=== PATIENT | female | born 1965 | race Caucasian/White ===

== ENCOUNTER 2019-12-27 09:31 | Outpatient (REF) | payer OTHER, SELFPAY | END 2019-12-27 09:32 | disposition home or self-care (01) | LOC: HO.LAB 09:31 | PROVIDERS: PCP Internal Medicine; Visit Provider Internal Medicine | DX: Z20.828 Contact with and (suspected) exposure to other viral communicable diseases (principal) | CPT/HCPCS: 87635 ==

== ENCOUNTER 2024-10-11 06:24 | Day surgery (SDC) | payer OTHER, SELFPAY ==
--- OUTSIDE RECORDS SUMMARY | 2024-08-13 13:33 | XMS_ITS | Clinical Summary ---
Author Organization [address] Address [address] [place] [phone] Phone Care Team Providers Care Legal Financial Specialist Name Role Phone Vicky Warren MD Primary Care Provider [phone] Allergies No known active allergies Medications freestyle 28 gauge lancets 1 Units by Other route 2 times daily. 5 Active furosemide (LASIX) 20 mg tablet Take 1 tablet (20 mg total) by mouth daily. 5 Active aspirin 81 mg EC tablet Take 1 tablet (81 mg total) by mouth 1 (one) time each day. 2 Active glucose blood test strip 1 each 2 times daily. 5 Active blood-glucose meter kit daily. 5 Active hydroCHLOROthia zide (HYDRODIURIL) 25 mg tablet Take 1 tablet (25 mg total) by mouth 1 (one) time each day. 6 Active metFORMIN XR (GLUCOPHAGE-XR) 500 mg 24 hr tablet Take 2 tablets (1,000 mg total) by mouth 2 (two) times a day. Do not crush, chew, or split. Active buPROPion SR (WELLBUTRIN SR) 150 mg 12 hr tablet Take 1 tablet (150 mg total) by mouth 1 (one) time each day in the evening. Do not crush, chew, or split. Active losartan (COZAAR) 100 mg tablet Take 1 tablet (100 mg total) by mouth 1 (one) time each day. Active atorvastatin (LIPITOR) 20 mg tablet Take 1 tablet (20 mg total) by mouth at bedtime. Active rOPINIRole (REQUIP) 0.25 mg tablet Take 1 tablet (0.25 mg total) by mouth at bedtime. Active fluticasone HFA (FLOVENT HFA) 110 mcg/actuation inhaler Inhale 1 puff by mouth 2 (two) times a day. Rinse mouth with water after use to reduce aftertaste and incidence of candidiasis. Do not swallow. Active dulaglutide (TRULICITY) 3 mg/0.5 mL pen injector injection Inject 0.5 mL (3 mg total) under the skin every 7 (seven) days. Increase in dose 2 mL 1 4 Active empagliflozin (Jardiance) 25 mg tablet Take 1 tablet (25 mg total) by mouth 1 (one) time each day. 90 tablet 1 4 Active polyethylene glycol (Golytely) 236-22.74-6.74 -5.86 gram solution Take 4L by mouth once for one dose. May substitue any PEG. Starting at 6PM the night before your procedure drink 1 8oz glasses at your own pace until you complete half of the gallon. Finish 2nd half of the gallon 5 hours before your procedure. 4000 mL 5 Active bisacodyL (DULCOLAX) 5 mg EC tablet Take 2 tablets by mouth right before beginning bowel prep. See instructions provided by the office 2 tablet 5 Active Additional Information Patient not taking.Reported on 06/17/2024 Ventolin HFA 90 mcg/actuation inhaler INHALE 1 PUFF INTO THE LUNGS EVERY 6 HOURS NEEDED FOR COUGH, WHEEZING OR SHORTNESS OF BREATH. 54 each 1 5 Active resmetirom (Rezdiffra) 80 mg tabletIndicatio ns:POP (nonalcoholic steatohepatitis ) Take 80 mg by mouth 1 (one) time each day. 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 Acute hepatitis panel was negative. US liver consistent with steatohepatitis January 2021 Trichomonas infection 04/08/2018 Hyperlipidemia 07/30/2016 Abnormal Pap smear of cervix 02/27/2016 Overview (05/06/2023): 2013 ASCUS / colposcopy Anxiety 11/08/2015 Diabetes mellitus type 2, un complicated ([facility]/HCC V24, [facility]/HCC V28) 07/15/2014 ESR raised 05/02/2014 Overview (05/06/2023): Liver ultrasound 05/17/2014: echogenic liver Obesity 05/02/2014 TREE on CPAP 05/02/2014 Overview (05/06/2023): [facility] home sleep test 07/17/2021. Weight 206; BMI 40. AHI 11. Obstructive apneas 19, central apneas; Hypopneas 26. Oxygen saturation 94% and oxygen elizabeth 80%. Obstructive sleep apnea-mild with mostly hypopneas and obstructive apneas without nocturnal hypoxemia based on 2021 home sleep study. Last Assessment & Plan: Ramila started using the machine last year. The CPAP is working excellent and her ESS score is less than 5. She feels with more energy Use of the machine is still a little bit short-term more than 4 hours only 65% of the time I advised her that for meeting DME requirements she needs more than 70% of the time She is receiving the supplies from [employer] We will see her back in 1 year with compliance report. CTS (carpal tunnel syndrome) 11/13/2013 Overview (05/06/2023): Surgery right 11/2013 / left mild Right CTS surgery [facility] 11/2013 Pterygium of left eye 10/15/2013 Syncope 10/15/2013 Overview (05/06/2023): Result type: Neurology Note Office Result date: 04 October 2013 9:21 Result status: Auth (Verified) Result title: Neurology follow up Performed by: Esther Mason NP on 04 October 2013 9:41 Verified by: Esther Mason NP on 04 October 2013 9:41 Encounter info: [id number], [facility], Triage, 12/29/2013 - Neurology follow up Patient: RAMILA PETERSON Age: 48 years Sex: Female : 1965 Associated Diagnoses: None Author: Esther Mason NP Visit Information Chief Complaint: syncope. Visit Information Accompanied by: email developer. Source of History: patient, medical record. Visit Type: neurological follow-up. Interval History Brigitte is a 48yo female here for f/u of syncope vs seizures after ER visit 09/18/13. She was last evaluated by Dr coyne on 05/06/12. She is accompanied by a alum plant supervisor. She was seen in [facility] ER on 09/18 after she was found by her children unresponsive on the couch. Per her report she was shaking and foaming from the mouth, she has no memory of the event, the last she remembers was sitting on the couch watching tv. She describes a period of a few hours after waking of being confused and fatigued. CT scan of head and EKG normal, she was d/c home with question of syncope. She had a 5day VEEG in 2012 which was normal at which time Dr Coyne attributed her episodes as possibly AURELIO and was refered to behavioral health. She did not show for her appointment stating its because she speaks korean and they speak italian. She has not been on AEDs in the past or present. She has seen cardiology for syncope and collapse workup however she did not follow up for recommended tilt table testing. She reports that she will see lights flash in her vision and feels like she will pass out, but it usually passes. She thinks this may be seizures because of her most recent episode of shaking and foaming at the mouth. She denies any postural relation. She denies any illnesses, additional stress, or extreme fatigue at the time of ER visit. Reports poor sleep as she wakes frequently, cannot stop moving her legs, snores, wakes up gasping for air. No sleep study in past. Past Medical History Problem list All Problems ASCUS (atypical squamous cells of undetermined significance) on Pap smear / ICD-9-CM 795.01 / Confirmed 05/25/12 colpo pap neg; cx bx atrophy, no dysplasia; p16 neg. 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 / Confirmed Venous insufficiency / ICD-9-CM 459.81 / Confirmed Allergies Allergic Reactions (Selected) NKA Current medications (Selected) Prescriptions Prescribed Compression Stockings: See Instructions, # 1 pair, Maintenance, left lower extremity surgical, knee length 20-30 mm Hg, 07/07/12 13:24:11 Compression Stockings: See Instructions, # 2 pair, Maintenance, surgical, thigh high length 20-30 mm Hg, 09/22/12 16:03:28 Percocet-5/325 325 mg-5 mg oral tablet: See Instructions, PRN for pain, 1 tablet By Mouth Every 3 to 4 hours, # 30 tablet, 0 Refills, Maintenance, Tablet Documented Medications Documented Aspir 81: = 81 mg, By Mouth, Daily, 0 Refills, Maintenance Flovent HFA 110 mcg/inh inhalation aerosol: 2 puffs, Inhalation, 2 times a day, 0 Refills, Maintenance Lorazepam: = 1 mg, By Mouth, 3 times a day, PRN as needed for anxiety, 0 Refills, Maintenance ProAir HFA 90 mcg/inh inhalation aerosol with adapter: 2 puffs, Inhalation, 4 times a day, 0 Refills, Maintenance ferrous sulfate 325 mg oral enteric coated tablet: 1 tablet = 325 mg, By Mouth, Daily, 0 Refills, Maintenance hydrochlorothiazide-losartan 25 mg-100 mg oral tablet: 1 tablet, By Mouth, Daily, 0 Refills, Maintenance lisinopril 5 mg oral tablet: 1 tablet = 5 mg, By Mouth, Daily, 0 Refills, Maintenance Social History Social History No qualifying data available . Tobacco Use: Nonsmoker. Alcohol Use: Does not drink. Drug Use: Does not use drugs. Employment: Unemployed. Exercise None. Family History no fh of seizure disorders Review of Systems General: no weight loss, no weight gain. Neurological: daytime sleepiness, fatigue, no hearing loss, no headache, no imbalance, no incoordination, no language problem, no memory problem, no numbness, no paresthesias, snoring, no tingling, no tinnitus, no tremor, no vertigo, no visual changes, no weakness of one part of the body. Psychiatric: no anxiety, no depression, insomnia. Significant Constitutional, Eye, Skin, Head/Neck, ENMT, Respiratory, Cardio, Gastrointestinal, Breast, Gynecologic, Genitourinary, Endocrine, Muscoloskeletal, Immunologic, Hematologic, Lymphatic, Neurologic, Psych reviewed and negative except as noted above. Physical Examination Vital Signs Vitals Vital Signs: Vitals : VITAL SIGNS SECTION 10/01/2013 13:38 Temperature 98.0 DegF Pulse Rate 82 bpm Respiratory Rate 12 br/min L Systolic Blood Pressure 132 mm Hg Diastolic Blood Pressure 78 mm Hg Blood pressure sites Arm, right Mean Arterial Pressure 96 mm Hg . General: Well-appearing patient in no pain or distress. Obese. HEENT: Normocephalic and atraumatic. No scleral discoloration. crowded oropharynx Neck: No scarring. Normal carotid pulses with absent bruits. Heart: Regular rate and rhythm. No murmur. Lungs: Clear to auscultation bilaterally. Abdomen: No mass or tenderness to palpation. Skin: No hypo- or hyperpigmented regions. Limbs: No deformity or amputation. No significant joint swelling or tenderness. Neurologic Examination: Mental Status: Alert, oriented, fluent language. Normal comprehension and gross fund of knowledge. Cranial Nerves: Visual maxwell are full to confrontational testing. PERRLA. No afferent pupillary defect. Optic discs normal. EOMI. Face is symmetric with no sensory deficits. Hearing is intact to finger rub. Palate and uvula are midline. Sternocleidomastoid and trapezius demonstrate full strength. Tongue is midline with no atrophy or fasciculation. Motor: Normal muscle bulk and tone. Normal range of motion. No tremor or other involuntary movements. Strength is rated 5/5 in bilateral upper and lower extremities. Sensory: Normal sensation to light touch, sharp, vibration, and proprioception. Reflexes: 2 + and symmetric, downgoing toes bilaterally Cood: No ataxia on finger-nose or heel-mills testing. Rapid movements are normal in upper and lower extremities. Gait: Normal gait. The patient is able to heel, toe and tandem walk without difficulty. Results Review Per [facility] ED report- CT scan normal, EKG normal Impression and Plan Ramila is a 48yo female with syncope with collpase vs epileptic seizure vs psychogenic non epileptic seizures. Previous 5day VEEG normal. I advised her that it is important to follow up with recommended testing and treatments to help distinguish the etiology of her episodes (ie consulting behavioral health and tilt table testing through cardiology). Because of this new episode will obtain a 24hour AEEG but I am doubtful that seizures are the cause here. I advised her to call for the tilt table testing as she may have orthostatic hypotension causing her collapses. I explained that sometimes fainting can mimic seizure-like activity. She should also see behavioral health as recommended by Dr Coyne as it is a possibility these are psychogenic. She likely has TREE and will order a sleep study. We discussed getting to safe place when she has the aura of lights flashing. She will follow up with me in 3-4 months. Spent 45 minutes with Ramila of which 35 was spent counseling and coordinating and reviewing plan of care as discussed above. Esther Mason NP Neurology Division Attending: Medardo Coyne MD Comprehensive Plan Report sent to all consultants: Jena Fletcher. Mild vitamin D deficiency 01/21/2013 Encounters Date Type Department Care Team Description 08/13/2024 9:26 AM EDT Hospital Encounter Radiology Department - [address] [phone] Encounter for screening mammogram for breast cancer 07/15/2024 Telephone Gastroenterology - [facility] [address] [facility] [address] [place] [phone] Mary Vásquez PA prior auth Rezdiffra 80 mg tablet 07/01/2024 8:14 AM EDT - 07/01/2024 11:59 PM EDT Hospital Encounter [facility] Ultrasound [address] [place] [phone] POP (nonalcoholic steatohepatitis); Polyp of colon, unspecified part of colon, unspecified type Discharge Disposition: Home or Self Care 06/17/2024 10:30 AM EDT Office Visit Gastroenterology [facility] [address] [phone] Mary Vásquez PA POP (nonalcoholic steatohepatitis) (Primary Dx); Polyp of colon, unspecified part of colon, unspecified type 06/06/2024 1:34 PM EDT - 06/06/2024 2:15 PM EDT Emergency [facility] Emergency [address] [place] [address] Parotid sialadenitis (Primary Dx) Discharge Disposition: Home or Self Care 06/04/2024 8:45 AM EDT Office Visit Obstetrics and Gynecology [address] [phone] Susana Longoria, CHITRA Encounter for gynecological examination without abnormal finding (Primary Dx); Vaginal itching 06/03/2024 12:48 PM EDT Anesthesia Event [facility] Endoscopy [address] [place] [phone] Serge Bose MD 06/03/2024 11:01 AM EDT - 06/03/2024 11:59 PM EDT Hospital Encounter [facility] Endoscopy [address] [place] [phone] Katina Yancey MD Steele, Matthew G, CRNA Colon cancer screening Discharge Disposition: Home or Self Care 05/27/2024 Telephone [facility] - [address] [phone] Vicky Warren MD faxed order (Michael Vera) from Last 3 Months Immunizations Name Administration Dates Next Due Influenza Quadravalent, MDCK , 0.5ml, preservative free (Flucelvax) 6mo and older 01/22/2019,01/22/2018 Influenza Quadravalent, MDCK , 0.5ml, with preservative (Flucelvax) 6mo and older 11/25/2016 Influenza trivalent, with pr eservative (Fluzone; Afluria) 6mo and older 02/15/2016,01/02/2012 Pfizer SARS-CoV-2 COVID-19, mRNA, LNP-S, preservative free 08/10/2020,07/19/2020 Pneumococcal polysaccharide 23 valent (Pneumovax 23) 2yo and older 06/06/2015 Tdap Tetanus diptheria acell ular pertussis (Boostrix; Adacel) 7yo and older 06/06/2015,01/17/2012 Surgical History Surgery Date Site/Laterality Comments CARPAL TUNNEL RELEASE PROCEDURE: HISTORICAL CARPAL TUNNEL REL TUBAL LIGATION PROCEDURE: HISTORICAL TUBAL LIGATION OTHER SURGICAL HISTORY PROCEDURE: ---- OTHER ----; COMMENT: right ooforectomy COLONOSCOPY 06/29/2015 PROCEDURE: HISTORICAL COLONOSCOPY; COMMENT: Colon polyp, diverticulosis, hemorrhoids COLPOSCOPY 05/25/2012 PROCEDURE: OH COLPOSCOPY ENTIRE VAGINA W/CERVIX IF PRESENT SALPINGOOPHORECTOMY Right PROCEDURE: OH LAPAROSCOPY W/RMVL ADNEXAL STRUCTURES Medical History Medical History Date Comments TREE on CPAP DX:TREE on CPAP Asthma DX:Asthma Hypertension DX:Hypertension Varicose veins of both lower extremities DX:Varicose veins of both lo wer extremities Depression DX:Depression Anxiety 11/08/2015 DX:Anxiety Controlled type 2 diabetes m ellitus with neurological manifestations (CMS/HCC V24, CMS/HCC V28) DX:Controlled type 2 diabet es mellitus with neurological manifestations (HCC) Elevated LFTs 02/26/2016 DX:Elevated LFTs Carpal tunnel syndrome 02/26/2016 DX:Carpal tunnel syndrome; COMMENT: Right 11/2013 Syncope 02/26/2016 DX:Syncope Pterygium of left eye 02/26/2016 DX:Pterygi um of left eye Abnormal Pap smear of cervix 02/27/2016 DX: Abnormal Pap smear of cervix; COMMENT: 2012 ASCUS / colposcopy Hyperlipidemia 07/30/2016 DX:Hyperlipidemi a Morbid obesity due to excess calories ([facility] V24, [facility] V28) 11/25/2016 DX:Morbid obesity due to ex cess calories (HCC) Eating disorder, unspecified 08/17/2021 DX: Eating disorder, unspecified; COMMENT: Florina Lopez PhD POP (nonalcoholic steatohepatitis) 01/02/2021 DX:POP (nonalcoholic steatohepatitis); COMMENT: With elevated alk phos and GGT. Acute hepatitis panel was negative. US liver consistent with steatohepatitis January 2021 Postmenopausal bleeding 06/19/2021 DX:Postm enopausal bleeding Trichomonas infection 04/08/2018 DX:Trichom onas infection Uncontrolled type 2 diabetes mellitus with hyperglycemia ([facility] V24, [facility] V28) 08/02/2021 DX:Uncontrolled type 2 diabe jasmyne mellitus with hyperglycemia ([facility]) Family History Medical History Relation Name Comments Prostate cancer Father Diabetes Mother glaucoma Breast cancer Neg Hx Colon cancer Neg Hx Ovarian cancer Neg Hx Pancreatic cancer Neg Hx Uterine cancer Neg Hx Relation Name Status Comments Father Mother Alive Social History Tobacco Use Types Packs/Day Years Used Date Smoking Tobacco: Never Smokeless Tobacco: Never Tobacco Cessation:Counseling Given: Not Answered Alcohol Use Standard Drinks/Week Comments No 0 (1 standard drink = 0.6 oz pur e alcohol) Interpersonal Safety Answer Date Record ed Physical Abuse 06/03/2024 Verbal Abuse 06/03/2024 Comments No Sex and Gender Information Value Date Recorded Sex Assigned at Female 06/03/2024 10:51 AM EDT Legal Sex Female 1:31 AM EST Gender Identity Female 06/03/2024 10:51 AM EDT Sexual Orientation Straight 06/03/2024 10 :51 AM EDT Obstetrics History Para Term AB IAB SAB Ectopic Multiple Livin g Live Births 5 4 4 1 1 4 4 Date Outcome GA Total Labor Labor//3rd Weight Sex Type Anes PTL Aminata A1 A5 Name Clin Term Living Term Living Term Living Term Living SAB Last Filed Vital Signs Vital Sign Reading Time Taken Comments Blood Pressure 138/78 06/17/2024 10:29 AM EDT Pulse 70 06/06/2024 1:32 PM EDT Temperature 36.8 ??C (98.2 ??F) 06/06/2024 1:32 PM ED T Respiratory Rate 16 06/06/2024 1:32 PM EDT Oxygen Saturation 98% 06/06/2024 1:32 PM EDT Inhaled Oxygen Concentration - - Weight 92.1 kg (203 lb) 06/17/2024 10:29 AM EDT Height 152.4 cm (5') 06/17/2024 10:29 AM EDT Body Mass Index 39.65 06/17/2024 10:29 AM EDT Plan of Treatment Upcoming Encounters Date Type Department Care Team (Late st Contact Info) Description 08/25/2024 10:30 AM EDT Office Visit Adult Medicine [address] [phone] Nely Bates PA [address] [place] [phone] 08/31/2024 9:45 AM EDT Office Visit Pulmonolgy - [place] [address] [phone] Debra Pendleton MD [address] [address] 09/22/2024 9:50 AM EDT Office Visit Gastroenterology - [place] [address] [phone] Mary Vásquez PA [address] [phone] Health Maintenance Due Date Last Done Comments Diabetes: Annual Foot Exam 1975 Diabetes: Annual Retina Eye Exam 1975 Hepatitis A Vaccines (1 of 2 - Risk 2-dose series) 01/08/1984 Hepatitis B Vaccines (1 of 3 - 19+ 3-dose series) 01/08/1984 Cervical Cancer Screening: HPV 1986 Zoster Vaccines (1 of 2) 2015 Pneumococcal Vaccine: 50+ Years (2 of 2 - PCV) 06/05/2016 06/06/2015, 04/21/2012 Pneumococcal Vaccine: Pediatrics (0 to 5 Years) and At-Risk Patients (6 to 64 Years) (2 of 2 - PCV) 06/05/2016 06/06/2015, 04/21/2012 Depression Screening 02/16/2022 HIV Screening 02/16/2022 Hepatitis C Screening 02/16/2022 Social Influencers of Health Screening 02/16/2022 Diabetes: Annual Urine Albumin-Creatinine Ratio (uACR) 02/23/2022 COVID-19 Vaccine ( season) 2023 08/10/2020, 07/19/2020 Diabetes: Blood Sugar Control Test (HGBA1C) 07/27/2024 01/28/2024, 11/03/2023 DTaP,Tdap,and Td Vaccines (3 - Td or Tdap) 06/05/2025 06/06/2015, 01/17/2012 Breast Cancer Screening 07/31/2025 08/01/19, 08/01/2023, 07/18/2022, Additional history exists Diabetes: Annual GFR (Glomerular Filtration Rate) 08/11/2025 08/11/2024, 01/28/2024, 11/03/2023 Hypertension/CHF/CAD Annual BMP Blood Test 08/11/2025 08/11/2024, 01/28/2024, 11/03/2023 Cholesterol Screening (Lipid Panel) 01/27/2029 01/28/2024 Colorectal Cancer Screening: Colonoscopy 06/03/2034 06/03/2024 RSV Immunization Adult Patients (1 - 1-dose 75+ series) 01/08/2040 Influenza Vaccine Completed 01/06/2024, , 01/22/2018, Additional history exists HIB Vaccines Aged Out No longer eligi ble based on patient's age to complete this topic HPV Vaccines Aged Out No longer eligi ble based on patient's age to complete this topic IPV Vaccines Aged Out No longer eligi ble based on patient's age to complete this topic MMR Vaccines Aged Out No longer eligi ble based on patient's age to complete this topic Meningococcal ACWY Vaccine Aged Out N o longer eligible based on patient's age to complete this topic Meningococcal B Vaccine Aged Out No l onger eligible based on patient's age to complete this topic RSV Immunization Patients Under 20 months Aged Out No longer eligible based on patient's age to complete this topic Varicella Vaccines Aged Out No longer eligible based on patient's age to complete this topic Procedures Procedure Name Priority Date/Time Associated Diagnosis Comments CBC WITH AUTO DIFFERENTIAL Routine 08/11/2024 8:52 AM EDT POP (nonalcoholic steatohepatitis) CBC AND DIFFERENTIAL Routine 08/11/2024 8:52 AM EDT POP (nonalcoholic steatohepatitis) PROTHROMBIN TIME WITH INR Routine 08/11/2024 8:52 AM EDT POP (nonalcoholic steatohepatitis) COMPREHENSIVE METABOLIC PANEL Routine 08/11/2024 8:52 AM EDT POP (nonalcoholic steatohepatitis) US ELASTOGRAPHY PARENCHYMA Routine 07/01/2024 8:33 AM EDT POP (nonalcoholic steatohepatitis) Polyp of colon, unspecified part of colon, unspecified type TRICHOMONAS VAGINALIS ANTIGEN Routine 06/04/2024 9:03 AM EDT Vaginal itching WET PREP, GENITAL Routine 06/04/2024 9:0 3 AM EDT Vaginal itching COLONOSCOPY Routine 06/03/2024 12:59 PM EDT Colon cancer screening TISSUE EXAM Routine 06/03/2024 12:55 PM EDT Colon cancer screening HEMOGLOBIN A1C Routine 01/28/2024 9:21 AM EST 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 (CMS/HCC V24, CMS/HCC V28) Hypertension, unspecified type Hyperlipidemia, unspecified hyperlipidemia type LIPID PANEL WITH REFLEX TO DIRECT LDL Routine 01/28/2024 9:21 AM EST 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 (CMS/HCC V24, CMS/HCC V28) Hypertension, unspecified type Hyperlipidemia, unspecified hyperlipidemia type SCREENING MAMMOGRAPHY BI 2-VIEW BREAST INC CAD Routine 08/01/2023 10:06 AM EDT Encounter for screening mammogram for malignant neoplasm of breast from Last 3 Months or Most Recently Relevant to Health Maintenance Results * (ABNORMAL) CBC auto differential (08/11/2024 8:52 AM EDT) WBC 8.2 4.8 - 10.8 K/mcL LAB HEMETOLOGY METHOD 08/11/2024 10:[address] [facility] RBC 4.70 3.80 - 4.80 M/mcL LAB HEMETOLOGY METHOD 08/11/2024 10:[address] [facility] Hemoglobin 12.6 11.5 - 16.0 g/dL LAB HEMETOLOGY METHOD 08/11/2024 10:[address] [facility] Hematocrit 40.9 35.0 - 47.0 % LAB HEMETOLOGY METHOD 08/11/2024 10:[address] [facility] MCV 88.0 79.0 - 98.0 FL LAB HEMETOLOGY METHOD 08/11/2024 10:[address] [facility] MCH 27.1 27.0 - 32.0 pcg LAB HEMETOLOGY METHOD 08/11/2024 10:[address] [facility] MCHC 30.8(L) 32.0 - 37.0 g/dL LAB HEMETOLOGY METHOD 08/11/2024 10:[address] [facility] RDW 13.2 11.0 - 15.0 % LAB HEMETOLOGY METHOD 08/11/2024 10:[address] [facility] Platelets 292 130 - 400 K/mcL LAB HEMETOLOGY METHOD 08/11/2024 10:[address] [facility] MPV 11.4(H) 7.0 - 11.0 FL LAB HEMETOLOGY METHOD 08/11/2024 10:[address] [facility] NRBC 0.0 <1.0 % LAB HEMETOLOGY METHOD 08/11/2024 10:[address] [facility] NRBC Absolute 0.00 <0.10 K/mcL LAB HEMETOLOGY METHOD 08/11/2024 10:[address] [facility] Neutrophils Relative 56.1 % LAB HEMETOLOGY METHOD 08/11/2024 10:[address] [facility] Lymphocytes Relative 30.4 % LAB HEMETOLOGY METHOD 08/11/2024 10:[address] [facility] Monocytes Relative 8.5 % LAB HEMETOLOGY METHOD 08/11/2024 10:[address] [facility] Eosinophils Relative 3.7 % LAB HEMETOLOGY METHOD 08/11/2024 10:[address] [facility] Basophils Relative 1.1 % LAB HEMETOLOGY METHOD 08/11/2024 10:[address] [facility] Immature Granulocytes Relative 0.2 % LAB HEMETOLOGY METHOD 08/11/2024 10:[address] [facility] Neutrophils Absolute 4.59 1.50 - 7.00 K/mcL LAB HEMETOLOGY METHOD 08/11/2024 10:[address] [facility] Lymphocytes Absolute 2.49 1.00 - 5.00 K/mcL LAB HEMETOLOGY METHOD 08/11/2024 10:[address] [facility] Monocytes Absolute 0.70 0.20 - 1.00 K/mcL LAB HEMETOLOGY METHOD 08/11/2024 10:[address] [facility] Eosinophils Absolute 0.30 0.00 - 0.50 K/mcL LAB HEMETOLOGY METHOD 08/11/2024 10:[address] [facility] Basophils Absolute 0.09 0.00 - 0.20 K/[facility] LAB HEMETOLOGY METHOD 08/11/2024 10:14 AM EDT [facility] Immature Granulocytes Absolute 0.02 0.00 - 0.03 K/[facility] LAB HEMETOLOGY METHOD 08/11/2024 10:14 AM EDT [facility] Blood Venous blood specimen / Unknown Venipuncture / Unknown 08/11/2024 8:52 AM EDT 08/11/2024 8:52 AM EDT Mary JACOBS LAB BLOOD ORDERABLES Final Re sult Performing Organization Address [facility]/ZIP Co de Phone Number [facility] [address] [place] [address], [place] [phone] * Prothrombin time with INR (08/11/2024 8:52 AM EDT) Protime 11.8 10.6 - 13.9 sec LAB COAGULATION METHOD 08/11/2024 10:11 AM EDT [facility] INR 0.9 LAB COAGULATION METHOD 08/11/2024 10:11 AM EDT [facility] Blood Venous blood specimen / Unknown Venipuncture / Unknown 08/11/2024 8:52 AM EDT 08/11/2024 8:52 AM EDT Mary JACOBS LAB BLOOD ORDERABLES Final Re sult Performing Organization Address City/[facility]/ZIP Co de Phone Number [facility] [address] [place] [address], [place] [phone] * (ABNORMAL) Comprehensive metabolic panel (08/11/2024 8:52 AM EDT) Sodium 139 133 - 145 mmol/L LAB CHEMISTRY METHOD 08/11/2024 2:47 PM EDT [facility] Potassium 4.2 3.5 - 5.5 mmol/L LAB CHEMISTRY METHOD 08/11/2024 2:[address] [facility] Chloride 105 96 - 110 mmol/L LAB CHEMISTRY METHOD 08/11/2024 2:[address] [facility] CO2 28 21 - 32 mmol/L LAB CHEMISTRY METHOD 08/11/2024 2:[address] [facility] Anion Gap 6 3 - 11 LAB CHEMISTRY METHOD 08/11/2024 2:[address] [facility] Glucose 253(H) 70 - 100 mg/dL LAB CHEMISTRY METHOD 08/11/2024 2:[address] [facility] BUN 12 5 - 25 mg/dL LAB CHEMISTRY METHOD 08/11/2024 2:[address] [facility] Creatinine 0.64 0.50 - 1.10 mg/dL LAB CHEMISTRY METHOD 08/11/2024 2:[address] [facility] eGFR 102 >=60 mL/min/1. 73m2 LAB CHEMISTRY METHOD 08/11/2024 2:[address] [facility] Comment:Calculation based on the Chronic Kidney Disease Epidemiology Collaboration (CKD-EPI) equation refit without adjustment for race. BUN/Creatinine Ratio 18.8 LAB CHEMISTRY METHOD 08/11/2024 2:[address] [facility] Calcium 9.1 8.5 - 10.5 mg/dL LAB CHEMISTRY METHOD 08/11/2024 2:[address] [facility] AST (SGOT) 29 10 - 42 unit/L LAB CHEMISTRY METHOD 08/11/2024 2:[address] [facility] ALT (SGPT) 56 10 - 60 unit/L LAB CHEMISTRY METHOD 08/11/2024 2:[address] [facility] Alkaline Phosphatase 144(H) 42 - 121 unit/L LAB CHEMISTRY METHOD 08/11/2024 2:[address] [facility] Total Protein 7.4 6.0 - 8.0 g/dL LAB CHEMISTRY METHOD 08/11/2024 2:47 PM EDT [facility] Albumin 3.3 3.2 - 5.0 g/dL LAB CHEMISTRY METHOD 08/11/2024 2:47 PM EDT [facility] Total Bilirubin 0.4 0.0 - 1.4 mg/dL LAB CHEMISTRY METHOD 08/11/2024 2:47 PM EDT [facility] Blood Venous blood specimen / Unknown Venipuncture / Unknown 08/11/2024 8:52 AM EDT 08/11/2024 8:52 AM EDT us Mary JACOBS LAB BLOOD ORDERABLES Final Re sult [facility] [address] [place] [address], * [place] Elastography Parenchyma (07/01/2024 8:33 AM EDT) Anatomical Region Laterality Modality Body Ultrasound 07/01/2024 11:0 3 AM EDT Impressions 07/01/2024 11:04 AM EDT Vmean of 1.9 m/s. Hepatic elastography measurements: Vmean less than 1.3 m/s: High probability of being normal. Vmean 1.3-1.7 m/s: In the absence of other known clinical signs, rules out compensated advanced chronic liver disease. ??If there are clinical signs, may need further testing for confirmation. Vmean 1.7-2.1 m/s: suggestive of compensated advanced chronic liver disease but further testing needed for confirmation. Vmean 2.1-2.4 m/s: rules in compensated advanced chronic liver disease. Vmean greater than 2.4 m/s: suggestive of clinically significant portal hypertension. -------- FINAL REPORT -------- Dictated By: Devyn Serra Dictated Date: 07/01/2024 11:03 ET Assigned Physician: Devyn Serra Reviewed and Electronically Signed By: Devyn Serra Signed Date: 07/01/2024 11:04 ET Workstation ID: [id number] Transcribed By: Self Edit Transcribed Date: 07/01/2024 11:03 ET Narrative 07/01/2024 11:04 AM EDT PROCEDURE: Liver elastography study. TECHNIQUE: Limited images of the liver with multiple elastography measurements. COMPARISON: Ultrasound 01/11/2021. FINDINGS: Vmean measurement of 1.9 m/s. Procedure Note Devyn Serra MD - 07/01/2024 PROCEDURE: Liver elastography study. TECHNIQUE: Limited images of the liver with multiple elastographymeasurements. COMPARISON: Ultrasound 01/11/2021. FINDINGS: Vmean measurement of 1.9 m/s. IMPRESSION: Vmean of 1.9 m/s. Hepatic elastography measurements: Vmean less than 1.3 m/s: High probability of being normal. Vmean 1.3-1.7 m/s: In the absence of other known clinical signs, rules outcompensated advanced chronic liver disease. If there are clinical signs,may need further testing for confirmation. Vmean 1.7-2.1 m/s: suggestive of compensated advanced chronic liverdisease but further testing needed for confirmation. Vmean 2.1-2.4 m/s: rules in compensated advanced chronic liver disease. Vmean greater than 2.4 m/s: suggestive of clinically significant portalhypertension. -------- FINAL REPORT -------- Dictated By: Devyn Serra Dictated Date: 07/01/2024 11:03 ET Assigned Physician: Devyn Serra Reviewed and Electronically Signed By: Devyn Serra Signed Date: 07/01/2024 11:04 ET Workstation ID: [id number] Transcribed By: Self Edit Transcribed Date: 07/01/2024 11:03 ET us Mary JACOBS IMOri US PROCEDURES Final Resul t * Trichomonas vaginalis antigen (06/04/2024 9:03 AM EDT) Trichomonas vaginalis Negative Negative 06/04/2024 7:43 PM EDT [facility] Swab Vaginal structure / Unknown Non-blood Collection / Unknown 06/04/2024 9:03 AM EDT 06/04/2024 9:03 AM EDT Susana BUENROSTRO LAB MICROBIOLOGY - GENERAL ORD ERABLES Final Result Performing Organization Address [facility] Co de Phone Number [facility] [address] [place] [address], [place] [phone] * (ABNORMAL) Wet prep, genital (06/04/2024 9:03 AM EDT) Clue Cells, Wet Prep Positive(A) Negative 06/04/2024 7:34 PM EDT [facility] Yeast, Wet Prep Negative Negative 06/04/2024 7:34 PM EDT [facility] Trichomonas, Wet Prep Indeterminate Negative 06/04/2024 7:34 PM EDT [facility] Comment:Refer to Trichomonas antigen. Swab Vaginal structure / Unknown Non-blood Collection / Unknown 06/04/2024 9:03 AM EDT 06/04/2024 9:03 AM EDT Susana BUENROSTRO LAB MICROBIOLOGY - GENERAL ORD ERABLES Final Result Performing Organization Address [facility] Co de Phone Number [facility] [address] [place] [address], [place] [phone] * COLONOSCOPY Anesthesia - [facility] [place] [place]; [facility] ENDOSCOPY (06/03/2024 12:59 PM EDT) Anatomical Region Laterality Modality Endoscopy 06/03/2024 12:5 1 PM EDT Impressions 06/03/2024 1:01 PM EDT - One 5 mm polyp in the cecum, removed with a cold ? snare. Resected and retrieved. ? - Diverticulosis in the sigmoid colon. ? - The distal rectum and anal verge are normal on ? retroflexion view. Recommendation: ?- Discharge patient to home. ? - Await pathology results. ? - Repeat colonoscopy in 10 years for surveillance. Narrative 06/03/2024 1:01 PM EDT [facility] Patient Name: Ramila Peterson Procedure Date: 06/03/2024 12:51 PM Date of : 1965 Age: 59 Gender: Female Note Status: Finalized Attending MD: Katina Yancey MD, Procedure Date No Time: 06/03/2024 Procedure: ? Colonoscopy Indications: ? Screening for colorectal malignant neoplasm Providers: ? Katina Yancey MD Referring MD: ?Katina Yancey MD Medicines: ? Monitored Anesthesia Care Complications: ? No immediate complications. Estimated blood loss: None. Estimated Blood Loss: ? Estimated blood loss was minimal. Procedure: ? Pre-Anesthesia Assessment: ? - Prior to the procedure, a History and Physical was ? performed, and patient medications and allergies were ? reviewed. The patient is competent. The risks and ? benefits of the procedure and the sedation options and ? risks were discussed with the patient. All questions ? were answered and informed consent was obtained. ? Patient identification and proposed procedure were ? verified by the physician, the nurse, the education analyst ? and the crystal growing technician in the pre-procedure area in the ? endoscopy suite. Mental Status Examination: alert and ? oriented. Airway Examination: normal oropharyngeal ? airway and neck mobility. Respiratory Examination: ? clear to auscultation. CV Examination: normal. ? Prophylactic Antibiotics: The patient does not require ? prophylactic antibiotics. Prior Anticoagulants: The ? patient has taken no anticoagulant or antiplatelet ? agents. ASA Grade Assessment: III - A patient with ? severe systemic disease. After reviewing the risks and ? benefits, the patient was deemed in satisfactory ? condition to undergo the procedure. The anesthesia ? plan was to use monitored anesthesia care (MAC). ? Immediately prior to administration of medications, ? the patient was re-assessed for adequacy to receive ? sedatives. The heart rate, respiratory rate, oxygen ? saturations, blood pressure, adequacy of pulmonary ? ventilation, and response to care were monitored ? throughout the procedure. The physical status of the ? patient was re-assessed after the procedure. ? After I obtained informed consent, the scope was ? passed under direct vision. Throughout the procedure, ? the patient's blood pressure, pulse, and oxygen ? saturations were monitored continuously. The Olympus ? Colonoscope was introduced through the anus and ? advanced to the cecum, identified by appendiceal ? orifice and ileocecal valve. The colonoscopy was ? performed without difficulty. The patient tolerated ? the procedure well. The quality of the bowel ? preparation was good. Findings: ?The perianal and digital rectal examinations were ? normal. ? A 5 mm polyp was found in the cecum. The polyp was ? flat. The polyp was removed with a cold snare. ? Resection and retrieval were complete. Estimated blood ? loss was minimal. ? Scattered small-mouthed diverticula were found in the ? sigmoid colon. ? The retroflexed view of the distal rectum and anal ? verge was normal and showed no anal or rectal ? abnormalities. Procedure Code(s): ? --- Professional --- ? 37717, Colonoscopy, flexible; with removal of ? tumor(s), polyp(s), or other lesion(s) by snare ? technique Diagnosis Code(s): ? --- Professional --- ? D12.0, Benign neoplasm of cecum CPT copyright 2020 [employer]. All rights reserved. The codes documented in this report are preliminary and upon consumer credit counselor review may be revised to meet current compliance requirements. Katina Yancey MD 06/03/2024 1:01:39 PM This report has been signed electronically.Katina Yancey MD Number of Addenda: 0 Note Initiated On: 06/03/2024 12:51 PM Scope Withdrawal Time: 0 hours 6 minutes 2 seconds Scope In: 12:52:45 PM Scope Out: 1:00:47 PM ? Endoscopy Department at [facility] - [address] [place] [address], ? [place] [address] Procedure Note Katina Yancey MD - 06/03/2024 [facility] Patient Name: Ramila Peterson Procedure Date: 06/03/2024 12:51 PM Date of : 1965 Age: 59 Gender: Female Note Status: Finalized Attending MD: Katina Yancey MD, Procedure Date No Time: 06/03/2024 Procedure: Colonoscopy Indications: Screening for colorectal malignant neoplasm Providers: Katina Yancey MD Referring MD: Katina Yancey MD Medicines: Monitored Anesthesia Care Complications: No immediate complications. Estimated blood loss:None. Estimated Blood Loss: Estimated blood loss was minimal. Procedure: Pre-Anesthesia Assessment: - Prior to the procedure, a History and Physicalwas performed, and patient medications and allergieswere reviewed. The patient is competent. The risks and benefits of the procedure and the sedation optionsand risks were discussed with the patient. Allquestions were answered and informed consent was obtained. Patient identification and proposed procedure were verified by the physician, the nurse, theanesthetist and the crystal growing technician in the pre-procedure area in the endoscopy suite. Mental Status Examination: alertand oriented. Airway Examination: normal oropharyngeal airway and neck mobility. Respiratory Examination: clear to auscultation. CV Examination: normal. Prophylactic Antibiotics: The patient does notrequire prophylactic antibiotics. Prior Anticoagulants: The patient has taken no anticoagulant or antiplatelet agents. ASA Grade Assessment: III - A patient with severe systemic disease. After reviewing the risksand benefits, the patient was deemed in satisfactory condition to undergo the procedure. The anesthesia plan was to use monitored anesthesia care (MAC). Immediately prior to administration of medications, the patient was re-assessed for adequacy to receive sedatives. The heart rate, respiratory rate, oxygen saturations, blood pressure, adequacy of pulmonary ventilation, and response to care were monitored throughout the procedure. The physical status ofthe patient was re-assessed after the procedure. After I obtained informed consent, the scope was passed under direct vision. Throughout theprocedure, the patient's blood pressure, pulse, and oxygen saturations were monitored continuously. TheOlympus Colonoscope was introduced through the anus and advanced to the cecum, identified by appendiceal orifice and ileocecal valve. The colonoscopy was performed without difficulty. The patient tolerated the procedure well. The quality of the bowel preparation was good. Findings: The perianal and digital rectal examinations were normal. A 5 mm polyp was found in the cecum. The polyp was flat. The polyp was removed with a cold snare. Resection and retrieval were complete. Estimatedblood loss was minimal. Scattered small-mouthed diverticula were found inthe sigmoid colon. The retroflexed view of the distal rectum and anal verge was normal and showed no anal or rectal abnormalities. Procedure Code(s): --- Professional --- 65240, Colonoscopy, flexible; with removal of tumor(s), polyp(s), or other lesion(s) by snare technique Diagnosis Code(s): --- Professional --- D12.0, Benign neoplasm of cecum CPT copyright 2020 [employer]. All rights reserved. The codes documented in this report are preliminary and upon consumer credit counselor reviewmay be revised to meet current compliance requirements. Katina Yancey MD 06/03/2024 1:01:39 PM This report has been signed electronically.Katina Yancey MD Number of Addenda: 0 Note Initiated On: 06/03/2024 12:51 PM Scope Withdrawal Time: 0 hours 6 minutes 2 seconds Scope In: 12:52:45 PM Scope Out: 1:00:47 PM Endoscopy Department at [facility] - [address] [place] [id number] IMPRESSION: - One 5 mm polyp in the cecum, removed with a cold snare. Resected and retrieved. - Diverticulosis in the sigmoid colon. - The distal rectum and anal verge are normal on retroflexion view. Recommendation: - Discharge patient to home. - Await pathology results. - Repeat colonoscopy in 10 years forsurveillance. us Katina Yancey MD GI~PROCEDURE ORDERABLES Fin al Result * Tissue exam (06/03/2024 12:55 PM EDT) Final Diagnosis Polyp, cecum, polypectomy: - Sessile serrated lesion, negative for dysplasia. 06/04/2024 1:58 PM EDT [facility] Gross Description A. Large Intestine, Cecum, polyp x1: Labeled colon cecum polyp x 1 . Received in formalin are two irregular oliver mucosal tissue fragments, measuring 0.5 cm and 0.9 cm in greatest dimension. The resection margin of the largest fragment is inked blue and the largest fragment is bisected. The specimen is wrapped in paper and entirely submitted in one cassette, three pieces, multiple levels on one slide. CHYNA 06/04/2024 1:58 PM EDT [facility] Disclaimer Unless otherwise specified, all tissue is 10% NB formalin fixed and paraffin embedded. 06/04/2024 1:58 PM EDT [facility] Tissue Cecum structure / Unknown 06/03/2024 12:55 PM EDT 06/03/2024 3:42 PM EDT Katina Yancey MD LAB PATHOLOGY ORDERABLES Fi nal Result [facility] [address] [place] [address], [place] [phone] * Lipid panel with reflex to direct LDL (01/28/2024 9:21 AM EST) Cholesterol 171 0 - 200 mg/dL LAB CHEMISTRY METHOD 01/28/2024 12:51 PM [facility] Triglycerides 77 0 - 150 mg/dL LAB CHEMISTRY METHOD 01/28/2024 12:51 PM [facility] HDL 64 >=40 mg/dL LAB CHEMISTRY METHOD 01/28/2024 12:51 PM [facility] LDL Calculated 92 0 - 100 mg/dL LAB CHEMISTRY METHOD 01/28/2024 12:51 PM [facility] VLDL Cholesterol Warren 15.4 mg/dL LAB CHEMISTRY METHOD 01/28/2024 12:51 PM [facility] Non HDL Chol. (LDL+VLDL) 107 <145 mg/dL LAB CHEMISTRY METHOD 01/28/2024 12:51 PM [facility] Chol/HDL Ratio 2.7 0.0 - 4.4 LAB CHEMISTRY METHOD 01/28/2024 12:51 PM [facility] Blood Venous blood specimen / Unknown Venipuncture / Unknown 01/28/2024 9:21 AM EST 01/28/2024 9:21 AM EST us Vicky Warren MD LAB BLOOD ORDERABLES Final Resul t [facility] [address] [place] [address], [place] [phone] * (ABNORMAL) Hemoglobin A1c (01/28/2024 9:21 AM EST) Hemoglobin A1C 8.2(H) <6.5 % LAB CHEMISTRY METHOD 01/28/2024 1:03 PM [facility] Mean Bld Glu Estim. 189 mg/dL LAB CHEMISTRY METHOD 01/28/2024 1:03 PM [facility] Blood Venous blood specimen / Unknown Venipuncture / Unknown 01/28/2024 9:21 AM EST 01/28/2024 9:21 AM EST Vicky Warren MD LAB BLOOD ORDERABLES Final Resul t [facility] [address] [place] [address], * SCREENING MAMMOGRAPHY BI 2-VIEW BREAST INC CAD (08/01/2023 10:06 AM EDT) Anatomical Region Laterality Modality Radiographic Leonila ging 07/18/2022 2:17 PM EDT Narrative 08/02/2023 4:32 PM EDT This is a summary report. The complete report is available in the patient's medical record. If you cannot access the medical record, please contact the sending organization for a detailed fax or copy. Full field digital screening 2D C views and tomosynthesis mammography, reviewed with CAD and compared to previous. The breasts are composed of fatty and fibroglandular tissue. ??No suspicious mass, architectural distortion or suspicious calcifications are identified. IMPRESSION: : No mammographic evidence of malignancy. BIRADS 1-Negative; N. 5 year breast cancer risk assessment N/A Lifetime breast cancer risk assessment N/A Breast cancer risk category Breast cancer risk not assessed Procedure Note Lesly Barajas MD - 10/27/2023 This is a summary report. The complete report is available in thepatient's medical record. If you cannot access the medical record, pleasecontact the sending organization for a detailed fax or copy. Full field digital screening 2D C views and tomosynthesis mammography,reviewed with CAD and compared to previous. The breasts are composed offatty and fibroglandular tissue. No suspicious mass, architecturaldistortion or suspicious calcifications are identified. IMPRESSION: : No mammographic evidence of malignancy. BIRADS 1-Negative; N. 5 year breast cancer risk assessment N/A Lifetime breast cancer risk assessment N/A Breast cancer risk category Breast cancer risk not assessed Frida Cox MD IMG XR PROCEDURES Final Res ult from Last 3 Months or Most Recently Relevant to Health Maintenance Insurance [facility] Care Teams Legal Financial Specialist Relationship Specialty Start Date End Date Vicky Warren MD [address] [place] [phone] PCP - General 02/27/23
[2024-10-04 16:39] VITALS: BMI 38.7
--- NOTE | 2024-10-08 10:26 | HO.ANESPROP2 ---
Documented by User: Chel Dutta NP 10/08/24 10:26 HPI - Anesthesia Eval Consult details Narrative: 59yo F for Right Cataract Extraction IOL Insertion No previous cataract on record Anesthesia Pre-Procedure Meds Is the patient on any of the following meds?: GLP1/DPP4 and SGLT2 Inhib PMFSH Past Medical History Medical History CTS (carpal tunnel syndrome) TREE on CPAP POP (nonalcoholic steatohepatitis) Pterygium of left eye Cataracts, bilateral Varicose veins of both lower extremities Depression Anxiety Asthma RLS (restless legs syndrome) HLD (hyperlipidemia) HTN (hypertension) Diabetes Surgical History Surgical History Hx of laparoscopy Hx of tubal ligation Hx of colonoscopy History of carpal tunnel release (~11/2013) Social History Social History (Updated 10/04/24 @ 16:41 by Sravanthi Mccall RN) Household Members: Other Household Members Other:: daughter Housing: Apartment Are you a primary wound care rn to a significant other at home: No Do you presently have visiting nurse or other home services: Yes (daughter LEAD ARCHITECT) Patient Tobacco Use Status: Never used Tobacco Use of substances other than those prescribed or required for medical reasons: No Are you DNR?: No Advance Directives: No Advance Directives Information Provided: Yes Advance Directives on File: No Poor oral hygiene: Yes Meds Allergies Allergy/AdvReac Type Severity Reaction Status Date / Time No Known Allergies Allergy Mild NKA Verified 10/11/24 07:32 Home Medications ?Medication ?Instructions ?Recorded ?Confirmed ?Last Taken ?Type albuterol sulfate 90 mcg/actuation 1 puff inhalation Q6H PRN 11/06/23 10/04/24 Unknown History aerosol inhaler (Ventolin HFA) Shortness Of Breath Or Wheezing atorvastatin 20 mg tablet 20 mg PO DAILY 11/06/23 10/04/24 Unknown History dulaglutide 1.5 mg/0.5 mL 1.5 mg subcut QWEEK 11/06/23 10/04/24 09/26/24 History subcutaneous pen injector (Trulicity) hydrochlorothiazide 25 mg tablet 25 mg PO DAILY 11/06/23 10/04/24 Unknown History losartan 100 mg tablet 100 mg PO DAILY 11/06/23 10/04/24 Unknown History metformin 500 mg tablet 1,000 mg PO BID 11/06/23 10/04/24 Unknown History ropinirole 0.25 mg tablet 0.25 mg PO QPM 11/06/23 10/04/24 Unknown History aspirin 81 mg tablet,delayed 81 mg PO DAILY 11/07/23 10/04/24 Unknown History release fluticasone propionate 110 1 puff inhalation BID 11/07/23 10/04/24 Unknown History mcg/actuation HFA aerosol inhaler omeprazole 20 mg capsule,delayed 20 mg PO DAILY 11/07/23 10/04/24 Unknown History release empagliflozin 25 mg tablet 25 mg PO DAILY 10/04/24 10/04/24 09/26/24 History (Jardiance) resmetirom 80 mg tablet (Rezdiffra) 80 mg PO DAILY 10/04/24 10/04/24 Unknown History Exam Height,Weight and Vital Signs: Height 5 ft Weight 89.811 kg Assessment and Plan Assessment Anesthesia Assessment: Chart Reviewed Documented by User: Latrice Jha MD 10/11/24 07:40 [facility] Past Medical History Medical History CTS (carpal tunnel syndrome) TREE on CPAP POP (nonalcoholic steatohepatitis) Pterygium of left eye Cataracts, bilateral Varicose veins of both lower extremities Depression Anxiety Asthma RLS (restless legs syndrome) HLD (hyperlipidemia) HTN (hypertension) Diabetes Family History Family history of problems with anesthesia: No Surgical History Surgical History Hx of laparoscopy Hx of tubal ligation Hx of colonoscopy History of carpal tunnel release (~11/2013) History of Problems with Anesthesia: No Social History Social History (Updated 10/04/24 @ 16:41 by Sravanthi Mccall RN) Household Members: Other Household Members Other:: daughter Housing: Apartment Are you a primary wound care rn to a significant other at home: No Do you presently have visiting nurse or other home services: Yes (daughter LEAD ARCHITECT) Patient Tobacco Use Status: Never used Tobacco Use of substances other than those prescribed or required for medical reasons: No Are you DNR?: No Advance Directives: No Advance Directives Information Provided: Yes Advance Directives on File: No Poor oral hygiene: Yes Meds Allergies Allergy/AdvReac Type Severity Reaction Status Date / Time No Known Allergies Allergy Mild NKA Verified 10/11/24 07:32 Home Medications ?Medication ?Instructions ?Recorded ?Confirmed ?Last Taken ?Type albuterol sulfate 90 mcg/actuation 1 puff inhalation Q6H PRN 11/06/23 10/04/24 Unknown History aerosol inhaler (Ventolin HFA) Shortness Of Breath Or Wheezing atorvastatin 20 mg tablet 20 mg PO DAILY 11/06/23 10/04/24 Unknown History dulaglutide 1.5 mg/0.5 mL 1.5 mg subcut QWEEK 11/06/23 10/04/24 09/26/24 History subcutaneous pen injector (Trulicity) hydrochlorothiazide 25 mg tablet 25 mg PO DAILY 11/06/23 10/04/24 Unknown History losartan 100 mg tablet 100 mg PO DAILY 11/06/23 10/04/24 Unknown History metformin 500 mg tablet 1,000 mg PO BID 11/06/23 10/04/24 Unknown History ropinirole 0.25 mg tablet 0.25 mg PO QPM 11/06/23 10/04/24 Unknown History aspirin 81 mg tablet,delayed 81 mg PO DAILY 11/07/23 10/04/24 Unknown History release fluticasone propionate 110 1 puff inhalation BID 11/07/23 10/04/24 Unknown History mcg/actuation HFA aerosol inhaler omeprazole 20 mg capsule,delayed 20 mg PO DAILY 11/07/23 10/04/24 Unknown History release empagliflozin 25 mg tablet 25 mg PO DAILY 10/04/24 10/04/24 09/26/24 History (Jardiance) resmetirom 80 mg tablet (Rezdiffra) 80 mg PO DAILY 10/04/24 10/04/24 Unknown History Exam Airway Mallampati Class: II TM Dist: >3cm Neck ROM: Full Denture: Upper and Lower Heart: rrr Lungs: cta Assessment and Plan Assessment Anesthesia Assessment: Anesthesia Plan Discussed Final Anesthetic Review Family History of Problems with Anesthesia: No History of Problems with Anesthesia: No NPO: Yes ASA Class: III Final Preanesthetic Review: No Changes in Pt Med Stat, Meds/Allgs Chart Reviewed and Consent Obtained/Reviewed Patient Risk: Low Procedure Risk: Low Anesthetic Plan Anesthetic Plan: MAC: Disposition: Standard PACU
[2024-10-11 07:15] LABS: Glucose, Whole Blood 210 mg/dL (60-115)
[2024-10-11] MEDS: Tetracaine HCl/PF 0.5% Oph Sol 4 ML DROPS 1 DROP EYE-RIGHT (07:16)
[2024-10-11] MEDS: Lactated Ringers 500 ML 50 ML IV (07:16)
[2024-10-11] MEDS: Tropicamide 1 % Ophth Sol 3 ML BTL 1 DROP EYE-RIGHT ×3 (07:16→07:26)
[2024-10-11] MEDS: Cyclopentolate 1 % Ophth Sol 2 ML DRPBTL 1 DROP EYE-RIGHT ×3 (07:16→07:25)
[2024-10-11] MEDS: Phenylephrine HCL 2.5% Oph SoL 2 ML BOTTLE 1 DROP EYE-RIGHT ×3 (07:16→07:26)
[2024-10-11] MEDS: Ketorolac Tromethamine 0.5% Op 5 ML DROPS 1 DROP EYE-RIGHT ×3 (07:16→07:25)
[2024-10-11 07:50] VITALS: BP 162/76; PULSE 80; RESP 18; TEMP 36.6; O2SAT 96
--- NOTE | 2024-10-11 08:21 | MHC.SHP ---
Pre-Procedural Eval Section A - 24 Hr Update-Section A only Date of Service: 10/11/24 The patient is an INPATIENT: No Changes since office visit: No Cold of Flu in the past 2 weeks, No New Medical Problems, No Changes in Medication and No Patient answered all questions The patient has been examined within 24 hours of the surgical procedure. The History & Physical has been completed within 30 days and I have reviewed it.: Yes Section B - Complete if H&P > 30 days Chief Complaint: Age-related nuclear cataract, right eye Allergies: Allergies Allergy/AdvReac Type Severity Reaction Status Date / Time No Known Allergies Allergy Mild NKA Verified 10/11/24 07:32 Plan Diagnosis/Plan: Unchanged I have reviewed the history and physical and performed a pertinent physical examination on my patient. No changes have occurred unless specified. Time Spent With Patient Time: Total time managing care of this patient today ____ minutes.
--- NOTE | 2024-10-11 08:22 | P.PCNO_ITS ---
Ophthalmology Procedure Procedure Date of Service: 10/11/24 Ophthalmology Viscoelastic: Healon Duet Dual Pack Pro Ophthalmology Lenses: IOL Acrysof MP - MA60AC (24.5) Procedure Notes: PREOPERATIVE DIAGNOSIS: Decreased visual acuity right eye secondary to cataract POSTOPERATIVE DIAGNOSIS: Same PROCEDURE: Right cataract extraction with intraocular lens insertion SURGEON: Rocky Singh M.D. ANESTHESIA: Topical/MAC ESTIMATED BLOOD LOSS: None COMPLICATIONS: None After obtaining informed consent, the patient was brought to the operating room suite and placed in the supine position. After adequate sedation per anesthesia, topical drops of Tetracaine were given to the right eye. The eye was then prepped and draped in the usual sterile fashion. The operating room microscope was then positioned over the operative eye and a lid speculum placed. A paracentesis was created. Viscoelastic was then instilled into the anterior chamber. A three plane incision was then created temporally, utilizing a 2.85 mm keratome. Capsulotomy forceps were then utilized to create a circular tear capsulotomy. Hydrodissection and hydrodelineation were carried out until adequate mobilization of the nucleus occurred. Phacoemulsification was then utilized to remove the dense central nu cleus followed by removal of the cortical material utilizing the automated aspiration irrigation unit. Viscoelastic was instilled into the posterior capsular bag followed by placement of a posterior chamber intraocular lens without difficulty. The residual Viscoelastic was then removed utilizing the automated IA machine. The wound was checked and found to be watertight. The patient tolerated the procedure well and the lid speculum was removed. Intracameral injection of Vigamox 0.1 mL followed by a subtenon injection of Kenalog-40 0.2 mL were administered. The patient will be seen in the a.m.
[2024-10-11 08:44] VITALS: BP 151/71; PULSE 66; RESP 21; TEMP 36.2; O2SAT 97
== END 2024-10-11 08:50 | disposition home or self-care (01) ==
PROVIDERS: PCP Internal Medicine; Visit Provider Ophthalmology
PROC: (CPT 66985; principal; 2024-10-11 08:30)
DX: H25.11 Age-related nuclear cataract, right eye (principal); Z83.511 Family history of glaucoma; H52.4 Presbyopia; H11.061 Recurrent pterygium of right eye; I10 Essential (primary) hypertension; E78.00 Pure hypercholesterolemia, unspecified; E11.9 Type 2 diabetes mellitus without complications; J45.30 Mild persistent asthma, uncomplicated; G47.33 Obstructive sleep apnea (adult) (pediatric); Z79.82 Long term (current) use of aspirin; Z79.51 Long term (current) use of inhaled steroids; Z79.84 Long term (current) use of oral hypoglycemic drugs; Z79.85 Long-term (current) use of injectable non-insulin antidiabetic drugs; Z79.899 Other long term (current) drug therapy; Z99.89 Dependence on other enabling machines and devices; Z98.890 Other specified postprocedural states
CPT/HCPCS: 66984; 82947; J2250; J3301; V2630

== ENCOUNTER 2024-10-25 06:49 | Day surgery (SDC) | payer OTHER, SELFPAY ==
--- OUTSIDE RECORDS SUMMARY | 2024-09-03 09:21 | XMS_ITS | Clinical Summary ---
Author Organization [address] Address [address] [place] [phone] Phone Care Team Providers Care [employer] Supervisor Name Role Phone Vicky Warren MD Primary Care Provider [phone] Allergies No known active allergies Medications freestyle [...] Active blood-glucose meter kit daily. 5 Active hydroCHLOROthi azide (HYDRODIURIL) 25 mg tablet Take 1 tablet (25 mg total) by mouth 1 (one) time each day. 6 Active buPROPion SR (WELLBUTRIN SR) 150 mg 12 hr tablet Take 1 tablet (150 mg total) by mouth 1 (one) time each day in the evening. Do not crush, chew, or split. Active losartan (COZAAR) 100 mg tablet Take 1 tablet (100 mg total) by mouth 1 (one) time each day. Active rOPINIRole (REQUIP) 0.25 mg tablet Take [...] each day. 90 tablet 1 4 Active Ventolin HFA 90 mcg/actuation inhaler INHALE 1 PUFF INTO THE LUNGS EVERY 6 HOURS NEEDED FOR COUGH, WHEEZING OR SHORTNESS OF BREATH. 54 each 1 5 Active resmetirom (Rezdiffra) 80 mg tabletIndicati ons:POP (nonalcoholic steatohepatiti s) Take 80 mg by mouth 1 (one) time each day. 30 tablet 3 5 Active atorvastatin (LIPITOR) 20 mg tablet Take 1 tablet (20 mg total) by mouth at bedtime. 90 tablet 1 5 Active metFORMIN XR (GLUCOPHAGE-XR ) 500 mg 24 hr tablet Take 2 tablets (1,000 mg total) by mouth 2 (two) times a day. Do not crush, chew, or split. 360 tablet 1 5 Active metFORMIN XR (GLUCOPHAGE-XR ) 500 mg 24 hr tablet Take 2 tablets (1,000 mg total) by mouth 2 (two) times a day. Do not crush, chew, or split. 025 Discontin ued(Reord er) atorvastatin (LIPITOR) 20 mg tablet Take 1 tablet (20 mg total) by mouth at bedtime. 025 Discontin ued(Reord er) polyethylene glycol (Golytely) 236-22.74-6.74 -5.86 gram solution Take 4L by mouth once for one dose. May substitue any PEG. Starting at 6PM the night before your procedure drink 1 8oz glasses at your own pace until you complete half of the gallon. Finish 2nd half of the gallon 5 hours before your procedure. 4000 mL 5 025 Discontin ued(Thera py completed ) bisacodyL (DULCOLAX) 5 mg EC tablet Take 2 tablets by mouth right before beginning bowel prep. 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 Weight 206; [...] time She is receiving the supplies from [email or web address] We will see her back in 1 [...] on 04 October 2013 9:41 Encounter info: [id number], [facility], Triage, 12/29/2013 - Neurology follow up Patient: RAMILA PETERSON Age: 48 years Sex: Female : 1965 Associated Diagnoses: None Author: Esther Mason NP Visit Information Chief Complaint: syncope. Visit Information Accompanied by: lang interpreter. Source of History: patient, medical record. Visit Type: neurological follow-up. Interval History Brigitte is a 48yo female here for f/u of syncope vs seizures after ER visit 09/18/13. She was last evaluated by Dr coyne on 05/06/12. She is accompanied by a bilingual spanish inbound sales. She was seen in [facility] ER on 09/18 after she was [...] her appointment stating its because she speaks latvian and they speak romansh. She has not been on AEDs in [...] tandem walk without difficulty. Results Review Per [facility] ED report- CT scan normal, EKG [...] Encounters Date Type Department Care Team Description 08/31/2024 8:37 AM EDT - 08/31/2024 11:59 PM EDT Hospital Encounter [facility] Interventional Radiology [address] [place] [phone] POP (nonalcoholic steatohepatitis) Discharge Disposition: Home or Self Care 08/27/2024 Telephone Adult Medicine [address] [phone] Esther Perez MA Results (Message left for return call) 08/26/2024 Telephone Adult Medicine [address] [phone] Francine Trimble LPN Fitting for DME 08/25/2024 11:27 AM EDT - 08/25/2024 11:59 PM EDT Hospital Encounter [address] [phone] Fall, initial encounter; Acute pain of left wrist Discharge Disposition: Home or Self Care 08/25/2024 11:26 AM EDT - 08/25/2024 11:59 PM EDT Hospital Encounter [address] [phone] Fall, initial encounter; Acute pain of right knee; Joint laxity of right knee Discharge Disposition: Home or Self Care 08/25/2024 10:30 AM EDT Office Visit Adult Medicine [address] [phone] Nely Bates PA Type 2 diabetes mellitus without complication, without long-term current use of insulin (CMS/HCC V24, CMS/HCC V28) (Primary Dx); Primary hypertension; Hyperlipidemia, unspecified hyperlipidemia type; Mild vitamin D deficiency; Fall, initial encounter; Acute pain of right knee; Joint laxity of right knee; Acute pain of left wrist 08/13/2024 9:26 AM EDT - 08/13/2024 11:59 PM EDT Hospital Encounter Radiology Department - [address] [phone] Encounter for screening mammogram for breast cancer Discharge Disposition: Home or Self Care 08/11/2024 8:55 AM EDT Lab Draw Station - [address] [facility] [address] [place] [phone] POP (nonalcoholic steatohepatitis) 07/15/2024 Telephone Gastroenterology - [place] [address] [facility] [address] [place] [phone] Mary Vásquez PA prior auth Rezdiffra 80 mg tablet 07/01/2024 8:14 AM EDT - 07/01/2024 11:59 PM EDT Hospital Encounter [facility] Ultrasound [address] [place] [phone] POP (nonalcoholic steatohepatitis); Polyp of colon, unspecified part of colon, unspecified type Discharge Disposition: Home or Self Care 06/17/2024 10:30 AM EDT Office Visit Gastroenterology - [place] [address] [facility] [address] [place] [phone] Mary Vásquez PA POP (nonalcoholic steatohepatitis) (Primary Dx); Polyp of colon, unspecified part of colon, unspecified type 06/06/2024 1:34 PM EDT - 06/06/2024 2:15 PM EDT Emergency [facility] Emergency [address] [place] [address] Parotid sialadenitis (Primary Dx) Discharge Disposition: Home or Self Care 06/04/2024 8:45 AM EDT Office Visit Obstetrics and Gynecology - [address] [phone] Susana Longoria CNM Encounter for gynecological examination without abnormal finding (Primary Dx); Vaginal itching 06/03/2024 12:48 PM EDT Anesthesia Event [facility] Endoscopy [address] [place] [phone] Serge Bose MD 06/03/2024 11:01 AM EDT - 06/03/2024 11:59 PM EDT Hospital Encounter [facility] Endoscopy [address] [place] [phone] Katina Yancey MD Steele, Matthew G, CRNA Colon cancer screening Discharge Disposition: Home or Self Care from Last 3 Months Immunizations Name Administration Dates Next Due Influenza Quadravalent, MDCK , 0.5ml, preservative free (Flucelvax) 6mo and older 01/22/2019,01/22/2018 Influenza Quadravalent, MDCK , 0.5ml, with preservative (Flucelvax) 6mo and older 11/25/2016 Influenza trivalent, with pr eservative (Fluzone; Afluria) 6mo and older 02/15/2016,01/02/2012 [employer] SARS-CoV-2 COVID-19, mRNA, LNP-S, preservative free 08/10/2020,07/19/2020 [...] Colon polyp, diverticulosis, hemorrhoids COLPOSCOPY 05/25/2012 PROCEDURE: DE COLPOSCOPY ENTIRE VAGINA W/CERVIX IF PRESENT SALPINGOOPHORECTOMY Right PROCEDURE: DE LAPAROSCOPY W/RMVL ADNEXAL STRUCTURES Medical History Medical [...] a Morbid obesity due to excess calories ([facility] V24, [facility] V28) 11/25/2016 DX:Morbid obesity due to ex cess calories ([facility]) Eating disorder, unspecified 08/17/2021 DX: Eating disorder, unspecified; COMMENT: Florina Lopez PhD POP (nonalcoholic steatohepatitis) 01/02/2021 DX:POP (nonalcoholic steatohepatitis); COMMENT: With elevated alk phos and GGT. Acute hepatitis panel was negative. US liver consistent with steatohepatitis January 2021 Postmenopausal bleeding 06/19/2021 DX:Postm enopausal bleeding Trichomonas infection 04/08/2018 DX:Trichom onas infection Uncontrolled type 2 diabetes mellitus with hyperglycemia ([facility] V24, [facility] V28) 08/02/2021 DX:Uncontrolled type 2 diabe jasmyne mellitus with hyperglycemia ([facility]) Family History Medical History Relation Name Comments [...] 4 4 Date Outcome GA Total Labor Labor/2nd/3rd Weight Sex Type Anes PTL Aminata A1 A5 Name Clin Term Living Term Living Term Living Term Living SAB Last Filed Vital Signs Vital Sign Reading Time Taken Comments Blood Pressure 149/98 08/31/2024 1:30 PM EDT Pulse 72 08/31/2024 1:30 PM EDT Temperature 36 C (96.8 F) 08/31/2024 9:09 AM EDT Respiratory Rate 18 08/31/2024 1:03 PM EDT Oxygen Saturation 97% 08/31/2024 1:30 PM EDT Inhaled Oxygen Concentration - - Weight 91.2 kg (201 lb) 08/31/2024 8:57 AM EDT Height 152.4 cm (5') 08/31/2024 8:57 AM EDT Body Mass Index 39.26 08/31/2024 8:57 AM EDT Plan of Treatment Upcoming Encounters Date Type Department Care Team (Late st Contact Info) Description 09/03/2024 1:00 PM EDT Office Visit Pulmonolgy [facility] [address] [phone] Debra Pendleton MD [address] [address] 09/22/2024 9:50 AM EDT Office Visit Gastroenterology [facility] [address] [phone] Mary Vásquez PA [address] [address] 10/01/2024 10:30 AM EDT Consult Adult Medicine [address] [phone] Vicky Warren MD [address] [place] [phone] 10/27/2024 1:30 PM EDT Medication Management Adult [address] [phone] Miroslava Rodrigues, PharmD [address] [place] [address] 12/29/2024 8:45 AM EDT Office Visit [address] [phone] Vicky Warren MD [address] [place] [address] 03/04/2025 3:00 PM EST Office Visit [address] [phone] Vicky Warren MD [address] [place] [phone] Health Maintenance Due Date Last Done Comments Diabetes: Annual Foot Exam 1975 Diabetes: Annual Retina Eye Exam 1975 Hepatitis B Vaccines (1 of 3 - [...] 07/19/2020 Diabetes: Blood Sugar Control Test (HGBA1C) 02/24/2025 08/25/2024, 01/28/2024, 11/03/2023 DTaP,Tdap,and Td Vaccines (3 - Td or Tdap) 06/05/2025 06/06/2015, 01/17/2012 Diabetes: Annual GFR (Glomerular Filtration Rate) 08/11/2025 08/11/2024, 01/28/2024, 11/03/2023 Hypertension/CHF/CAD Annual BMP Blood Test 08/11/2025 08/11/2024, 01/28/2024, 11/03/2023 Breast Cancer Screening 08/13/2026 08/14/19, 08/01/2023, 08/01/2023, Additional history exists Cholesterol Screening (Lipid Panel) 01/27/2029 01/28/2024 Colorectal Cancer Screening: Colonoscopy 06/03/2034 06/03/2024 RSV Immunization Adult Patients (1 - 1-dose 75+ series) 01/08/2040 Influenza Vaccine Completed 01/06/2024, , 01/22/2018, Additional history exists HIB Vaccines Aged Out No longer eligi ble based on patient's age to complete this topic HPV Vaccines Aged Out No longer eligi ble based on patient's age to complete this topic Hepatitis A Vaccines Aged Out No long er eligible based on patient's age to complete [...] Procedure Name Priority Date/Time Associated Diagnosis Comments HEMOGLOBIN AND HEMATOCRIT Routine 08/31/2024 1:51 PM EDT IR BX NDL LIVER PERC Routine 08/31/2024 11:50 AM EDT POP (nonalcoholic steatohepatitis) TISSUE EXAM Routine 08/31/2024 11:38 AM EDT POP (nonalcoholic steatohepatitis) PROTHROMBIN TIME WITH INR STAT 08/31/2024 9:34 AM EDT COMPLETE BLOOD COUNT Routine 08/31/2024 9:34 AM EDT XR KNEE 4+ VIEWS RIGHT Routine 08/25/2024 11:41 AM EDT Fall, initial encounter Acute pain of right knee Joint laxity of right knee XR WRIST 3+ VIEWS LEFT Routine 08/25/2024 11:41 AM EDT Fall, initial encounter Acute pain of left wrist HEMOGLOBIN A1C Routine 08/25/2024 11:23 AM EDT Type 2 diabetes mellitus without complication, without long-term current use of insulin (CMS/HCC V24, CMS/HCC V28) VITAMIN D 25 HYDROXY Routine 08/25/2024 11:23 AM EDT Mild vitamin D deficiency POC GLUCOSE Routine 08/25/2024 10:36 AM EDT Type 2 diabetes mellitus without complication, without long-term current use of insulin (CMS/HCC V24, CMS/HCC V28) MG MAMMO DIGITAL SCREENING W HERACLIO BILAT Routine 08/13/2024 9:40 AM EDT Encounter for screening mammogram for breast cancer CBC WITH AUTO DIFFERENTIAL Routine 08/11/2024 8:52 AM EDT POP (nonalcoholic steatohepatitis) CBC AND DIFFERENTIAL Routine 08/11/2024 8:52 AM EDT POP (nonalcoholic steatohepatitis) PROTHROMBIN TIME WITH INR Routine 08/11/2024 8:52 AM EDT POP (nonalcoholic steatohepatitis) COMPREHENSIVE METABOLIC PANEL Routine 08/11/2024 8:52 AM EDT POP (nonalcoholic steatohepatitis) US ELASTOGRAPHY PARENCHYMA Routine 07/01/2024 8:33 AM EDT PPO (nonalcoholic steatohepatitis) Polyp of colon, unspecified part of colon, unspecified type TRICHOMONAS VAGINALIS ANTIGEN Routine 06/04/2024 9:03 AM EDT Vaginal itching WET PREP, GENITAL Routine 06/04/2024 9:0 3 AM EDT Vaginal itching COLONOSCOPY Routine 06/03/2024 12:59 PM EDT Colon cancer screening TISSUE EXAM Routine 06/03/2024 12:55 PM EDT Colon cancer screening LIPID PANEL WITH REFLEX TO DIRECT LDL Routine 01/28/2024 9:21 AM EST 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 (CMS/HCC V24, CMS/HCC V28) Hypertension, unspecified type Hyperlipidemia, unspecified hyperlipidemia type from Last 3 Months or Most Recently Relevant to Health Maintenance Results * Hemoglobin and hematocrit, blood (08/31/2024 1:51 PM EDT) Hemoglobin 12.0 11.5 - 16.0 g/dL LAB HEMETOLOGY METHOD 08/31/2024 1:58 PM EDT [facility] Hematocrit 38.1 35.0 - 47.0 % LAB HEMETOLOGY METHOD 08/31/2024 1:58 PM EDT [facility] Blood Venous blood specimen / Unknown Venipuncture / Unknown 08/31/2024 1:51 PM EDT 08/31/2024 1:55 PM EDT us Magdy Bhagat MD LAB BLOOD ORDERABLES Final Resu lt [facility] [address] [place] [address], [place] [phone] * IR Bx Ndl Liver Perc (08/31/2024 11:50 AM EDT) Anatomical Region Laterality Modality Liver N/A Interventional R adiology Tissue 08/31/2024 12:0 8 PM EDT Narrative 08/31/2024 4:51 PM EDT INDICATION: POP, nonfocal liver biopsy Technique: Written informed consent was obtained after the risks, benefits and alternatives were discussed. Prior imaging was reviewed including ultrasound elastography parenchyma July 01, 2024 Patient was placed supine on the CT table and multiple images were obtained through the liver. The appropriate area of the skin was draped and prepped in the usual sterile fashion. 2% buffered lidocaine was used as a local anesthetic. Moderate intravenous sedation was initiated and maintained for approximately 20 minutes utilizing 1mg Versed and 50mcg Fentanyl while the patient was independently monitored by the radiology nurse under the supervision of the performing provider. Under CT fluoroscopic guidance a 17-gauge coaxial needle was advanced into the left lobe of the liver at midline. A total of 4 13mm 18 gauge core biopsy samples were obtained. Gel-foam was utilized along the tract to aid in hemostasis. Final pathology pending. The patient tolerated the procedure well and left the department in stable condition without immediate complications. FINDINGS: Images obtained during biopsy demonstrate needle tip within the left lobe of the liver . Images obtained after biopsy demonstrate no acute complication, good hemostasis. DLP: 603.59 mGy-cm CONCLUSION: CT-guided non focal core liver biopsy -------- FINAL REPORT -------- Dictated By: Angelina Kendall Dictated Date: 08/31/2024 12:08 ET Assigned Physician: Magdy Bhagat Reviewed and Electronically Signed By: Magdy Bhagat Signed Date: 08/31/2024 16:51 ET Workstation ID: [id number] Transcribed By: Self Edit Transcribed Date: 08/31/2024 12:16 ET Resident/PA/DATABASE SECURITY EXPERT: Angelina Kendall Procedure Note Magdy Bhagat MD - 08/31/2024 INDICATION: POP, nonfocal liver biopsy Technique: Written informed consent was obtained after the risks, benefitsand alternatives were discussed. Prior imaging was reviewed includingultrasound elastography parenchyma July 01, 2024 Patient was placed supine on the CT table and multiple images wereobtained through the liver. The appropriate area of the skin was drapedand prepped in the usual sterile fashion. 2% buffered lidocaine was usedas a local anesthetic. Moderate intravenous sedation was initiated andmaintained for approximately 20 minutes utilizing 1mg Versed and 50mcgFentanyl while the patient was independently monitored by the radiologynurse under the supervision of the performing provider. Under CT fluoroscopic guidance a 17-gauge coaxial needle was advanced intothe left lobe of the liver at midline. A total of 4 13mm 18 gauge corebiopsy samples were obtained. Gel-foam was utilized along the tract to aidin hemostasis. Final pathology pending. The patient tolerated theprocedure well and left the department in stable condition withoutimmediate complications. FINDINGS: Images obtained during biopsy demonstrate needle tip within the left lobeof the liver . Images obtained after biopsy demonstrate no acute complication, goodhemostasis. DLP: 603.59 mGy-cm CONCLUSION: CT-guided non focal core liver biopsy -------- FINAL REPORT -------- Dictated By: Angelina Kendall Dictated Date: 08/31/2024 12:08 ET Assigned Physician: Magdy Bhagat Reviewed and Electronically Signed By: Magdy Bhagat Signed Date: 08/31/2024 16:51 ET Workstation ID: [id number] Transcribed By: Self Edit Transcribed Date: 08/31/2024 12:16 ET Resident/PA/DATABASE SECURITY EXPERT: Angelina Kendall [facility] IR PROCEDURES Final Resul t * Tissue exam (08/31/2024 11:38 AM EDT) Only the most recent of2 resultswithin the time period is included. Final Diagnosis A. Liver, biopsy: - Liver with mild macrosteatosis (30%), rare minimal lobular inflammation (0-1 foci per 200x magnification), and rare isolated ballooned hepatocytes. 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 - Special stains: - Trichrome: shows andrews-portal and focal lobular fibrosis (Trudy-Otis stage 2). - PAS-D: negative for alpha-1, anti-trypsin globules. - Iron: negative. - Controls stain appropriately. Note: The liver biopsy is notable for mild macrosteatosis (30%), rare minimal lobular inflammation (0-1 foci per 200x magnification), and rare isolated ballooned hepatocytes. The bile ducts are well-preserved. The POP activity score is 3 of 8, and the biopsy is indefinite for non-alcoholic steatohepatitis (POP) by pathologic scoring criteria. However, in the absence of other etiologies, POP is favored due to presence of chronic injury - andrews-portal and focal lobular fibrosis (Trudy-Otis stage 2). The patient's laboratory values are noted: AST - 29, ALT - 56, ALK P. - 144. T. Bili - 0.4. 1:50 PM EDT [facility] Gross Description A. Liver, : Labeled liver . Received in formalin are four soft, oliver-brown tissue cores ranging from 0.45 x 0.1 cm to 0.6 x 0.1 cm, which are wrapped in paper and submitted in toto in one cassette, four pieces, x 3. TS 1:50 PM EDT [facility] Disclaimer Unless otherwise specified, all tissue is 10% NB formalin fixed and paraffin embedded. NOTE: The immunohistochemical tests and in situ hybridization tests were developed and their performance characteristics were determined by [facility]. They have not been cleared or approved by the U.S. Food and Drug Administration. The FDA has determined that such clearance or approval is not necessary. These tests are used for clinical purposes. They should not be regarded as investigational or for research. This laboratory is certified under the Clinical Laboratory Improvement Amendments of 1988 (CLIA) as qualified to perform high complexity clinical laboratory testing. (controls appropriate) 1:50 PM EDT [facility] Tissue Liver structure / Unknown 08/31/2024 11:38 AM EDT 08/31/2024 11:56 AM EDT us Mary [facility] LAB PATHOLOGY ORDERABLES Angela stuart Result [facility] [address] [place] [address], [place] [phone] * Prothrombin time with INR (08/31/2024 9:34 AM EDT) Only the most recent of2 resultswithin the time period is included. [facility] Protime 11.8 10.6 - 13.9 sec LAB COAGULATION METHOD 08/31/2024 10:10 AM EDT [facility] INR 0.9 LAB COAGULATION METHOD 08/31/2024 10:10 AM EDT [facility] Blood Venous blood specimen / Unknown Venipuncture / Unknown 08/31/2024 9:34 AM EDT 08/31/2024 9:51 AM EDT us Magdy Bhagat MD LAB BLOOD ORDERABLES Final Resu lt [facility] [address] [place] [address], [place] [phone] * (ABNORMAL) CBC (08/31/2024 9:34 AM EDT) [facility] WBC 9.0 4.8 - 10.8 K/mcL LAB HEMETOLOGY METHOD 08/31/2024 10:03 AM EDT [facility] RBC 4.50 3.80 - 4.80 M/mcL LAB HEMETOLOGY METHOD 08/31/2024 10:03 AM EDT [facility] Hemoglobin 12.3 11.5 - 16.0 g/dL LAB HEMETOLOGY METHOD 08/31/2024 10:03 AM EDT [facility] Hematocrit 39.1 35.0 - 47.0 % LAB HEMETOLOGY METHOD 08/31/2024 10:03 AM EDT [facility] MCV 86.9 79.0 - 98.0 FL LAB HEMETOLOGY METHOD 08/31/2024 10:03 AM EDT [facility] MCH 27.3 27.0 - 32.0 pcg LAB HEMETOLOGY METHOD 08/31/2024 10:03 AM EDT [facility] MCHC 31.5(L) 32.0 - 37.0 g/dL LAB HEMETOLOGY METHOD 08/31/2024 10:03 AM EDT [facility] RDW 13.3 11.0 - 15.0 % LAB HEMETOLOGY METHOD 08/31/2024 10:03 AM EDT [facility] Platelets 329 130 - 400 K/mcL LAB HEMETOLOGY METHOD 08/31/2024 10:03 AM EDT [facility] MPV 9.9 7.0 - 11.0 FL LAB HEMETOLOGY METHOD 08/31/2024 10:03 AM EDT [facility] NRBC 0.0 <1.0 % LAB HEMETOLOGY METHOD 08/31/2024 10:03 AM EDT [facility] NRBC Absolute 0.00 <0.10 K/mcL LAB HEMETOLOGY METHOD 08/31/2024 10:03 AM EDT [facility] Blood Venous blood specimen / Unknown Venipuncture / Unknown 08/31/2024 9:34 AM EDT 08/31/2024 9:51 AM EDT us Magdy Bhagat MD LAB BLOOD ORDERABLES Final Resu lt [facility] [address] [place] [address], * XR Knee 4+ Views Right (08/25/2024 11:41 AM EDT) Anatomical Region Laterality Modality Lower Extremities, Knee Right Radiogra phic Imaging 08/25/2024 4:40 PM EDT Impressions 08/25/2024 4:41 PM EDT 1. No acute fracture or dislocation of the right knee. 2. Minimal degenerative changes of the right knee -------- FINAL REPORT -------- Dictated By: Fabio Moeller Dictated Date: 08/25/2024 16:40 ET Assigned Physician: Fabio Moeller Reviewed and Electronically Signed By: Fabio Moeller Signed Date: 08/25/2024 16:41 ET Workstation ID: [id number] Transcribed By: Self Edit Transcribed Date: 08/25/2024 16:40 ET Narrative 08/25/2024 4:41 PM EDT HISTORY: pain and lateral laxity 2nd to fall TECHNIQUE: 6 views of the right knee COMPARISON: None FINDINGS: No acute fracture or dislocation is seen. There is no joint effusion present. The medial and lateral joint spaces appear normal. Small osteophytes at the medial femoral condyle and medial tibial plateau. Mild enthesopathy of the superior pole of the patella. Procedure Note Fabio Moeller MD - 08/25/2024 HISTORY: pain and lateral laxity 2nd to fall TECHNIQUE: 6 views of the right knee COMPARISON: None FINDINGS: No acute fracture or dislocation is seen. There is no joint effusionpresent. The medial and lateral joint spaces appear normal. Smallosteophytes at the medial femoral condyle and medial tibial plateau. Mildenthesopathy of the superior pole of the patella. IMPRESSION: 1. No acute fracture or dislocation of the right knee. 2. Minimal degenerative changes of the right knee -------- FINAL REPORT -------- Dictated By: Fabio Moeller Dictated Date: 08/25/2024 16:40 ET Assigned Physician: Fabio Moeller Reviewed and Electronically Signed By: Fabio Moeller Signed Date: 08/25/2024 16:41 ET Workstation ID: [id number] Transcribed By: Self Edit Transcribed Date: 08/25/2024 16:40 ET Nely JACOBS IMG XR PROCEDURES Final Result * XR Wrist 3+ Views Left (08/25/2024 11:41 AM EDT) Anatomical Region Laterality Modality Upper Extremities, Wrist Left Radiogr aphic Imaging 08/25/2024 5:01 PM EDT Impressions 08/25/2024 6:07 PM EDT No osseous or articular abnormalities of the left wrist. Moderate soft tissue swelling. -------- FINAL REPORT -------- Dictated By: Fabio Moeller Dictated Date: 08/25/2024 17:01 ET Assigned Physician: Fabio Moeller Reviewed and Electronically Signed By: Fabio Moeller Signed Date: 08/25/2024 18:07 ET Workstation ID: [id number] Transcribed By: Self Edit Transcribed Date: 08/25/2024 17:03 ET Narrative 08/25/2024 6:07 PM EDT HISTORY: ulnar pain 2nd to fall TECHNIQUE: 5 radiographs of the left wrist COMPARISON: None. FINDINGS: There is normal mineralization with no fracture or malalignment. The visualized articulations are normal. The carpal bones demonstrate normal alignment. Moderate soft tissue swelling. Procedure Note Fabio Moeller MD - 08/25/2024 HISTORY: ulnar pain 2nd to fall TECHNIQUE: 5 radiographs of the left wrist COMPARISON: None. FINDINGS: There is normal mineralization with no fracture or malalignment.The visualized articulations are normal. The carpal bones demonstratenormal alignment. Moderate soft tissue swelling. IMPRESSION: No osseous or articular abnormalities of the left wrist. Moderate soft tissue swelling. -------- FINAL REPORT -------- Dictated By: Fabio Moeller Dictated Date: 08/25/2024 17:01 ET Assigned Physician: Fabio Moeller Reviewed and Electronically Signed By: Fabio Moeller Signed Date: 08/25/2024 18:07 ET Workstation ID: [id number] Transcribed By: Self Edit Transcribed Date: 08/25/2024 17:03 ET Nely JACOBS IMG XR PROCEDURES Final Result * (ABNORMAL) Vitamin D 25 hydroxy (08/25/2024 11:23 AM EDT) Vit D, 25-Hydroxy 22.3(L) 30.0 - 80.0 ng/mL LAB CHEMISTRY METHOD 08/25/2024 3:11 PM EDT [facility] Blood Venous blood specimen / Unknown Venipuncture / Unknown 08/25/2024 11:23 AM EDT 08/25/2024 11:23 AM EDT us Nely JACOBS LAB BLOOD ORDERABLES Final Res ult Performing Organization Address City/[facility]/ZIP Co de Phone Number [facility] [address] [place] [address], [place] [phone] * (ABNORMAL) Hemoglobin A1c (08/25/2024 11:23 AM EDT) Hemoglobin A1C 10.0(H) <6.5 % LAB CHEMISTRY METHOD 08/25/2024 1:40 PM EDT [facility] Mean Bld Glu Estim. 240 mg/dL LAB CHEMISTRY METHOD 08/25/2024 1:40 PM EDT [facility] Blood Venous blood specimen / Unknown Venipuncture / Unknown 08/25/2024 11:23 AM EDT 08/25/2024 11:23 AM EDT us Nely JACOBS LAB BLOOD ORDERABLES Final Res ult Performing Organization Address City/[facility]/ZIP Co de Phone Number [facility] [address] [place] [address], [place] [phone] * (ABNORMAL) POC glucose manually resulted (08/25/2024 10:36 AM EDT) Glucose POC 190 mg/dL Blood Capillary blood specimen / Unknown 08/25/2024 10:36 AM EDT us Nely JACOBS POINT OF CARE TEST ENTER/EDIT ORDERABLES Final Result * MG Mammo Digital Screening w Heraclio bilat (08/13/2024 9:40 AM EDT) Anatomical Region Laterality Modality Breast Bilateral Mammography 08/13/2024 2:08 PM EDT Impressions 08/13/2024 2:14 PM EDT No mammographic evidence for malignancy. BI-RADS CATEGORY: 1 - NEGATIVE RECOMMENDATION: Screening bilateral mammogram is recommended in 1 year. Mammo Location: [facility], [address] [place] [address], [phone], . -------- FINAL REPORT -------- Dictated By: Lesly Barajas Dictated Date: 08/13/2024 14:08 ET Assigned Physician: Lesly Barajas Reviewed and Electronically Signed By: Lesly Barajas Signed Date: 08/13/2024 14:14 ET Workstation ID: [id number] Transcribed By: Self Edit Transcribed Date: 08/13/2024 14:08 ET Narrative 08/13/2024 2:14 PM EDT Bilateral mammogram. Screening examination. CLINICAL: 59 years old, Female, routine annual exam. COMPARISON: Prior mammograms, latest from 08/01/2023. TECHNIQUE: Bilateral MLO and CC views were obtained digitally with 2-D C views and 3-D mammogram (digital breast tomosynthesis). Computer-aided detection was utilized in evaluation of this exam (CAD). FINDINGS: There is no evidence of suspicious mass or architectural distortion. No worrisome calcifications are evident. There has been no significant change from prior exam(s). BREAST DENSITY: B - There are scattered areas of fibroglandular density. Procedure Note Lesly Barajas MD - 08/13/2024 Bilateral mammogram. Screening examination. CLINICAL: 59 years old, Female, routine annual exam. COMPARISON: Prior mammograms, latest from 08/01/2023. TECHNIQUE: Bilateral MLO and CC views were obtained digitally with 2-D Cviews and 3-D mammogram (digital breast tomosynthesis). Computer-aideddetection was utilized in evaluation of this exam (CAD). FINDINGS: There is no evidence of suspicious mass or architectural distortion. Noworrisome calcifications are evident. There has been no significantchange from prior exam(s). BREAST DENSITY: B - There are scattered areas of fibroglandular density. IMPRESSION: No mammographic evidence for malignancy. BI-RADS CATEGORY: 1 - NEGATIVE RECOMMENDATION: Screening bilateral mammogram is recommended in 1 year. Mammo Location: [facility], [address] [place] [address], [phone], . -------- FINAL REPORT -------- Dictated By: Lesly Barajas Dictated Date: 08/13/2024 14:08 ET Assigned Physician: Lesly Barajas Reviewed and Electronically Signed By: Lesly Barajas Signed Date: 08/13/2024 14:14 ET Workstation ID: [id number] Transcribed By: Self Edit Transcribed Date: 08/13/2024 14:08 ET Vicky Warren MD IM BI PROCEDURES Final Result * (ABNORMAL) CBC auto differential (08/11/2024 8:52 AM EDT) WBC 8.2 4.8 - 10.8 K/mcL LAB HEMETOLOGY METHOD 08/11/2024 10:14 AM EDT [facility] RBC 4.70 3.80 - 4.80 M/mcL LAB HEMETOLOGY METHOD 08/11/2024 10:14 AM EDT [facility] Hemoglobin 12.6 11.5 - 16.0 g/dL LAB [facility]OLOGY [facility] Hematocrit 40.9 35.0 - 47.0 % LAB HEMETOLOGY METHOD [facility]2024 10[facility] MCV 88.0 79.0 - 98.0 FL LAB HEMETOLOGY METHOD 08/11[facility]2024 10:[facility] MCH 27.1 27.0 - 32.0 pcg LAB HEMETOLOGY METHOD 08/11/2024 10:14 AM [facility] MCHC 30.8(L) 32.0 - 37.0 g/dL LAB HEMETOLOGY METHOD 08/11/2024 10:14 AM [facility] RDW 13.2 11.0 - 15.0 % LAB HEMETOLOGY METHOD 08/11/2024 10:14 AM [facility] Platelets 292 130 - 400 K/mcL LAB HEMETOLOGY METHOD 08/11/2024 10:14 AM [facility] MPV 11.4(H) 7.0 - 11.0 FL LAB HEMETOLOGY METHOD 08/11/2024 10:14 AM [facility] NRBC 0.0 <1.0 % LAB HEMETOLOGY METHOD 08/11/2024 10:14 AM [facility] NRBC Absolute 0.00 <0.10 K/mcL LAB HEMETOLOGY METHOD 08/11/2024 10:14 AM [facility] Neutrophils Relative 56.1 % LAB HEMETOLOGY METHOD 08/11/2024 10:14 AM [facility] Lymphocytes Relative 30.4 % LAB HEMETOLOGY METHOD 08/11/2024 10:14 AM [facility] Monocytes Relative 8.5 % LAB HEMETOLOGY METHOD 08/11/2024 10:14 AM [facility] Eosinophils Relative 3.7 % LAB HEMETOLOGY METHOD 08/11/2024 10:14 AM [facility] Basophils Relative 1.1 % LAB HEMETOLOGY METHOD 08/11/2024 10:14 AM [facility] Immature Granulocytes Relative 0.2 % LAB HEMETOLOGY METHOD 08/11/2024 10:14 AM [facility] Neutrophils Absolute 4.59 1.50 - 7.00 K/mcL LAB HEMETOLOGY METHOD 08/11/2024 10:14 AM EDT [facility] Lymphocytes Absolute 2.49 1.00 - 5.00 K/[facility] LAB HEMETOLOGY METHOD 08/11/2024 10:14 AM EDT [facility] Monocytes Absolute 0.70 0.20 - 1.00 K/[facility] LAB HEMETOLOGY METHOD 08/11/2024 10:14 AM EDT [facility] Eosinophils Absolute 0.30 0.00 - 0.50 K/[facility] LAB HEMETOLOGY METHOD 08/11/2024 10:14 AM EDT [facility] Basophils Absolute 0.09 0.00 - 0.20 K/[facility] LAB HEMETOLOGY METHOD 08/11/2024 10:14 AM EDT [facility] Immature Granulocytes Absolute 0.02 0.00 - 0.03 K/[facility] LAB HEMETOLOGY METHOD 08/11/2024 10:14 AM EDT [facility] Blood Venous blood specimen / Unknown Venipuncture / Unknown 08/11/2024 8:52 AM EDT 08/11/2024 8:52 AM EDT Mary JACOBS LAB BLOOD ORDERABLES Final Re sult [facility] [address] [place] [address], * (ABNORMAL) Comprehensive metabolic panel (08/11/2024 8:52 AM EDT) Sodium 139 133 - 145 mmol/L LAB CHEMISTRY METHOD 08/11/2024 2:47 PM EDT [facility] Potassium 4.2 3.5 - 5.5 mmol/L LAB CHEMISTRY METHOD 08/11/2024 2:47 PM EDT [facility] Chloride 105 96 - 110 mmol/L LAB CHEMISTRY METHOD 08/11/2024 2:47 PM EDT [facility] CO2 28 21 - 32 mmol/L LAB CHEMISTRY METHOD 08/11/2024 2:47 PM [facility] Anion Gap 6 3 - 11 LAB CHEMISTRY METHOD 08/11/2024 2:47 PM [facility] Glucose 253(H) 70 - 100 mg/dL LAB CHEMISTRY METHOD 08/11/2024 2:47 PM [facility] BUN 12 5 - 25 mg/dL LAB CHEMISTRY METHOD 08/11/2024 2:47 PM [facility] Creatinine 0.64 0.50 - 1.10 mg/dL LAB CHEMISTRY METHOD 08/11/2024 2:47 PM [facility] eGFR 102 >=60 mL/min/1. 73m2 LAB CHEMISTRY METHOD 08/11/2024 2:47 PM [facility] Comment:Calculation based on the Chronic Kidney Disease Epidemiology Collaboration (CKD-EPI) equation refit without adjustment for race. BUN/Creatinine Ratio 18.8 LAB CHEMISTRY METHOD 08/11/2024 2:47 PM [facility] Calcium 9.1 8.5 - 10.5 mg/dL LAB CHEMISTRY METHOD 08/11/2024 2:47 PM [facility] AST (SGOT) 29 10 - 42 unit/L LAB CHEMISTRY METHOD 08/11/2024 2:47 PM [facility] ALT (SGPT) 56 10 - 60 unit/L LAB CHEMISTRY METHOD 08/11/2024 2:47 PM [facility] Alkaline Phosphatase 144(H) 42 - 121 unit/L LAB CHEMISTRY METHOD 08/11/2024 2:47 PM [facility] Total Protein 7.4 6.0 - 8.0 g/dL LAB CHEMISTRY METHOD 08/11/2024 2:47 PM [facility] Albumin 3.3 3.2 - 5.0 g/dL LAB CHEMISTRY METHOD 08/11/2024 2:47 PM EDT [facility] Total Bilirubin 0.4 0.0 - 1.4 mg/dL LAB CHEMISTRY METHOD 08/11/2024 2:47 PM EDT [facility] Blood Venous blood specimen / Unknown Venipuncture / Unknown 08/11/2024 8:52 AM EDT 08/11/2024 8:52 AM EDT us Mary JACOBS LAB BLOOD ORDERABLES Final Re sult [facility] [address] [place] [address], * [place] Elastography Parenchyma (07/01/2024 8:33 AM EDT) Anatomical Region Laterality Modality Body Ultrasound 07/01/2024 11:0 3 AM EDT Impressions 07/01/2024 11:04 AM EDT Vmean of 1.9 m/s. Hepatic elastography measurements: Vmean less than 1.3 m/s: High probability of being normal. Vmean 1.3-1.7 m/s: In the absence of other known clinical signs, rules out compensated advanced chronic liver disease. If there are clinical signs, may need further [...] Signed Date: 07/01/2024 11:04 ET Workstation ID: [id number] Transcribed By: Self Edit Transcribed Date: 07/01/2024 [...] Signed Date: 07/01/2024 11:04 ET Workstation ID: [id number] Transcribed By: Self Edit Transcribed Date: 07/01/2024 11:03 ET us Mary JACOBS IMG US PROCEDURES Final Resul t * Trichomonas vaginalis antigen (06/04/2024 9:03 AM EDT) Trichomonas vaginalis Negative Negative 06/04/2024 7:43 PM EDT [facility]) [facility] Swab Vaginal structure / Unknown Non-blood Collection / Unknown 06/04/2024 9:03 AM EDT 06/04/2024 9:03 AM EDT us Meza Mariajose Longoria [facility] LAB MICROBIOLOGY - GENERAL ORD ERABLES Final Result Performing Organization Address [facility]/ZIP Co de Phone Number [facility] [address] [place] [address], [place] [phone] * (ABNORMAL) Wet prep, genital (06/04/2024 9:03 AM EDT) Clue Cells, Wet Prep Positive(A) Negative 06/04/2024 7:34 PM EDT [facility] Yeast, Wet Prep Negative Negative 06/04/2024 7:34 PM EDT [facility] Trichomonas, Wet Prep Indeterminate Negative 06/04/2024 7:34 PM EDT [facility] Comment:Refer to Trichomonas antigen. Swab Vaginal structure / Unknown Non-blood Collection / Unknown 06/04/2024 9:03 AM EDT 06/04/2024 9:03 AM EDT us Susana BUENROSTRO LAB MICROBIOLOGY - GENERAL ORD ERABLES Final Result Performing Organization Address [facility] de Phone Number [facility] [address] [place] [address], * COLONOSCOPY Anesthesia - [facility] ENDOSCOPY (06/03/2024 12:59 PM EDT) [...] results. - Repeat colonoscopy in 10 years for surveillance. Narrative 06/03/2024 1:01 PM EDT [facility] Patient Name: Ramila Peterson Procedure Date: 06/03/2024 12:51 PM Date of : 1965 Age: 59 Gender: Female Note Status: Finalized Attending MD: Katina Yancey MD, Procedure Date No Time: 06/03/2024 Procedure: Colonoscopy Indications: Screening for colorectal malignant neoplasm Providers: Katina Yancey MD Referring MD: Katina Yancey MD Medicines: Monitored Anesthesia Care Complications: No immediate complications. Estimated blood loss: None. Estimated Blood Loss: Estimated blood loss was minimal. Procedure: Pre-Anesthesia Assessment: - Prior to the procedure, a History and Physical was performed, and patient medications and allergies were reviewed. The patient is competent. The risks and benefits of the procedure and the sedation options and risks were discussed with the patient. All questions were answered and informed consent was obtained. Patient identification and proposed procedure were verified by the physician, the nurse, the senior director of global commercial technology solutions and the metal technician in the pre-procedure area in the endoscopy suite. Mental Status Examination: alert and oriented. Airway Examination: normal oropharyngeal airway and neck mobility. Respiratory Examination: clear to auscultation. CV Examination: normal. Prophylactic Antibiotics: The patient does not require prophylactic antibiotics. Prior Anticoagulants: The patient has taken no anticoagulant or antiplatelet agents. ASA Grade Assessment: III - A patient with severe systemic disease. After reviewing the risks and benefits, the patient was deemed in satisfactory condition to undergo the procedure. The anesthesia plan was to use monitored anesthesia care (MAC). Immediately prior to administration of medications, the patient was re-assessed for adequacy to receive sedatives. The heart rate, respiratory rate, oxygen saturations, blood pressure, adequacy of pulmonary ventilation, and response to care were monitored throughout the procedure. The physical status of the patient was re-assessed after the procedure. After I obtained informed consent, the scope was passed under direct vision. Throughout the procedure, the patient's blood pressure, pulse, and oxygen saturations were monitored continuously. The Olympus Colonoscope was introduced through the anus and [...] cold snare. Resection and retrieval were complete. Estimated blood loss was minimal. Scattered small-mouthed diverticula were found in the sigmoid colon. The retroflexed view of the distal rectum and anal verge was normal and showed no anal or rectal abnormalities. Procedure Code(s): --- Professional --- 28964, Colonoscopy, flexible; with removal of tumor(s), polyp(s), or other lesion(s) by snare technique Diagnosis Code(s): --- Professional --- D12.0, Benign neoplasm of cecum CPT copyright 2020 [employer]. All rights reserved. The codes documented in this report are preliminary and upon data coder operator review may be revised to meet current compliance requirements. Katina Yancey MD 06/03/2024 1:01:39 PM This report has been signed electronically.Katina Yancey MD Number of Addenda: 0 Note Initiated On: 06/03/2024 12:51 PM Scope Withdrawal Time: 0 hours 6 minutes 2 seconds Scope In: 12:52:45 PM Scope Out: 1:00:47 PM Endoscopy Department at [facility] - [address] [place] [phone] Procedure Note Katina Yancey MD - 06/03/2024 [facility] GI Patient Name: Ramila Peterson Procedure Date: [...] the physician, the nurse, theanesthetist and the metal technician in the pre-procedure area in the [...] rectal abnormalities. Procedure Code(s): --- Professional --- 58749, Colonoscopy, flexible; with removal of tumor(s), polyp(s), or other lesion(s) by snare technique Diagnosis Code(s): --- Professional --- D12.0, Benign neoplasm of cecum CPT copyright 2020 [employer]. All rights reserved. The codes documented in this report are preliminary and upon data coder operator reviewmay be revised to meet current compliance requirements. Katina Yancey MD 06/03/2024 1:01:39 PM This report has been signed electronically.Katina Yancey MD Number of Addenda: 0 Note Initiated On: 06/03/2024 12:51 PM Scope Withdrawal Time: 0 hours 6 minutes 2 seconds Scope In: 12:52:45 PM Scope Out: 1:00:47 PM Endoscopy Department at [facility] - [address] [place] [phone] IMPRESSION: - One 5 mm polyp in the cecum, removed with a cold snare. Resected and retrieved. - Diverticulosis in the sigmoid colon. - The distal rectum and anal verge are normal on retroflexion view. Recommendation: - Discharge patient to home. - Await pathology results. - Repeat colonoscopy in 10 years forsurveillance. Katina Yancey MD GI~PROCEDURE ORDERABLES Fin al Result * Lipid panel with reflex to direct LDL (01/28/2024 9:21 AM EST) Cholesterol 171 0 - 200 mg/dL LAB CHEMISTRY METHOD 01/28/2024 12:51 PM [facility] Triglycerides 77 0 - 150 mg/dL LAB CHEMISTRY METHOD 01/28/2024 12:51 PM [facility] HDL 64 >=40 mg/dL LAB CHEMISTRY METHOD 01/28/2024 12:51 PM [facility] LDL Calculated 92 0 - 100 mg/dL LAB CHEMISTRY METHOD 01/28/2024 12:51 PM [facility] VLDL Cholesterol Warren 15.4 mg/dL LAB CHEMISTRY METHOD 01/28/2024 12:51 PM [facility] Non HDL Chol. (LDL+VLDL) 107 <145 mg/dL LAB CHEMISTRY METHOD 01/28/2024 12:51 PM [facility] Chol/HDL Ratio 2.7 0.0 - 4.4 LAB CHEMISTRY METHOD 01/28/2024 12:51 PM [facility] Blood Venous blood specimen / Unknown Venipuncture / Unknown 01/28/2024 9:21 AM EST 01/28/2024 9:21 AM EST us Vicky Warren MD LAB BLOOD ORDERABLES Final Resul t [facility]) [facility] [address] [place] [address], [place] [phone] from Last 3 Months or Most Recently Relevant to Health Maintenance Insurance [facility] [employer] Care Teams [employer] Supervisor Relationship Specialty Start Date End Date Vicky Warren MD [address] [place] [id number] PCP - General 02/27/23
[2024-10-04 16:35] VITALS: BMI 38.7
--- NOTE | 2024-10-22 08:49 | HO.ANESPROP2 ---
HPI - Anesthesia Eval Consult details Narrative: 59yo F for Left Cataract Extraction IOL Insertion Right eye 10/11/24: [facility] 2 Anesthesia Pre-Procedure Meds Is the patient on any of the following meds?: GLP1/DPP4 PMFSH Past Medical History Medical History CTS (carpal tunnel syndrome) TREE on CPAP POP (nonalcoholic steatohepatitis) Pterygium of left eye Cataracts, bilateral Varicose veins of both lower extremities Depression Anxiety Asthma RLS (restless legs syndrome) HLD (hyperlipidemia) HTN (hypertension) Diabetes Family History Family history of problems with anesthesia: No Surgical History Surgical History Hx of right cataract extraction (10/11/24) Hx of laparoscopy Hx of tubal ligation Hx of colonoscopy History of carpal tunnel release (~11/2013) History of Problems with Anesthesia: No Social History Social History Household Members: Other Household Members Other:: daughter Housing: Apartment Are you a primary director of patient care to a significant other at home: No Do you presently have visiting nurse or other home services: Yes (daughter ECHO TECHNOLOGIST) Patient Tobacco Use Status: Never used Tobacco Use of substances other than those prescribed or required for medical reasons: No Are you DNR?: No Advance Directives: No Advance Directives Information Provided: Yes Advance Directives on File: No Patient : No Poor oral hygiene: Yes (many missing teeth) Meds Allergies Allergy/AdvReac Type Severity Reaction Status Date / Time No Known Allergies Allergy Mild NKA Verified 10/11/24 07:32 Home Medications ?Medication ?Instructions ?Recorded ?Confirmed ?Last Taken ?Type albuterol sulfate 90 mcg/actuation 1 puff inhalation Q6H PRN 11/06/23 10/04/24 Unknown History aerosol inhaler (Ventolin HFA) Shortness Of Breath Or Wheezing atorvastatin 20 mg tablet 20 mg PO DAILY 11/06/23 10/04/24 Unknown History dulaglutide 1.5 mg/0.5 mL 1.5 mg subcut QWEEK 11/06/23 10/04/24 09/26/24 History subcutaneous pen injector (Trulicity) hydrochlorothiazide 25 mg tablet 25 mg PO DAILY 11/06/23 10/04/24 Unknown History losartan 100 mg tablet 100 mg PO DAILY 11/06/23 10/04/24 Unknown History metformin 500 mg tablet 1,000 mg PO BID 11/06/23 10/04/24 Unknown History ropinirole 0.25 mg tablet 0.25 mg PO QPM 11/06/23 10/04/24 Unknown History aspirin 81 mg tablet,delayed 81 mg PO DAILY 11/07/23 10/04/24 Unknown History release fluticasone propionate 110 1 puff inhalation BID 11/07/23 10/04/24 Unknown History mcg/actuation HFA aerosol inhaler omeprazole 20 mg capsule,delayed 20 mg PO DAILY 11/07/23 10/04/24 Unknown History release empagliflozin 25 mg tablet 25 mg PO DAILY 10/04/24 10/04/24 09/26/24 History (Jardiance) resmetirom 80 mg tablet (Rezdiffra) 80 mg PO DAILY 10/04/24 10/04/24 Unknown History Exam Height,Weight and Vital Signs: Height 5 ft Weight 89.811 kg Assessment and Plan Assessment Anesthesia Assessment: Chart Reviewed Final Anesthetic Review Family History of Problems with Anesthesia: No History of Problems with Anesthesia: No
[2024-10-25 07:30] LABS: Glucose, Whole Blood 250 mg/dL (60-115)
[2024-10-25] MEDS: Tetracaine HCl/PF 0.5% Oph Sol 4 ML DROPS 1 DROP EYE-LEFT (07:32)
[2024-10-25] MEDS: Tropicamide 1 % Ophth Sol 3 ML BTL 1 DROP EYE-LEFT ×3 (07:35→07:47)
[2024-10-25] MEDS: Cyclopentolate 1 % Ophth Sol 2 ML DRPBTL 1 DROP EYE-LEFT ×3 (07:35→07:46)
--- NOTE | 2024-10-25 07:38 | HO.ANESPROP2 ---
[facility] Past Medical History Medical History CTS (carpal tunnel syndrome) TREE on CPAP POP (nonalcoholic steatohepatitis) Pterygium of left eye Cataracts, bilateral Varicose veins of both lower extremities Depression Anxiety Asthma RLS (restless legs syndrome) HLD (hyperlipidemia) HTN (hypertension) Diabetes Functional capacity: independent ambulation Patient : No Family History Family history of problems with anesthesia: No Surgical History Surgical History Hx of right cataract extraction (10/11/24) Hx of laparoscopy Hx of tubal ligation Hx of colonoscopy History of carpal tunnel release (~11/2013) History of Problems with Anesthesia: No Social History Social History Household Members: Other Household Members Other:: daughter Housing: Apartment Are you a primary date night caregiver to a significant other at home: No Do you presently have visiting nurse or other home services: Yes (daughter GRADES 1 THROUGH 5 TEACHER) Patient Tobacco Use Status: Never used Tobacco Use of substances other than those prescribed or required for medical reasons: No Are you DNR?: No Advance Directives: No Advance Directives Information Provided: Yes Advance Directives on File: No Poor oral hygiene: Yes (many missing teeth) Meds Allergies Allergy/AdvReac Type Severity Reaction Status Date / Time No Known Allergies Allergy Mild NKA Verified 10/11/24 07:32 Active Medications: Current Medications Albuterol Sulfate (Albuterol Sulfate (0.083%) 2.5 Mg/3 Ml Vial.Neb) 2.5 mg INHALE ONCE PRN PRN Reason: Shortness of Breath/Wheezing Lactated Ringer's (Lr) 500 mls @ 50 mls/hr IV .Q10H FRIDA Stop: 10/25/24 17:14 Povidone Iodine (Povidone Iodine 5 % Ophth Soln 30 Ml Bottle) 1 appl EYE-LEFT PREOP PRN PRN Reason: Pre-Op Surgical Implant Prophy Home Medications ?Medication ?Instructions ?Recorded ?Confirmed ?Last Taken ?Type albuterol sulfate 90 mcg/actuation 1 puff inhalation Q6H PRN 11/06/23 10/04/24 Unknown History aerosol inhaler (Ventolin HFA) Shortness Of Breath Or Wheezing atorvastatin 20 mg tablet 20 mg PO DAILY 11/06/23 10/04/24 Unknown History dulaglutide 1.5 mg/0.5 mL 1.5 mg subcut QWEEK 11/06/23 10/04/24 09/26/24 History subcutaneous pen injector (Trulicity) hydrochlorothiazide 25 mg tablet 25 mg PO DAILY 11/06/23 10/04/24 Unknown History losartan 100 mg tablet 100 mg PO DAILY 11/06/23 10/04/24 Unknown History metformin 500 mg tablet 1,000 mg PO BID 11/06/23 10/04/24 Unknown History ropinirole 0.25 mg tablet 0.25 mg PO QPM 11/06/23 10/04/24 Unknown History aspirin 81 mg tablet,delayed 81 mg PO DAILY 11/07/23 10/04/24 Unknown History release fluticasone propionate 110 1 puff inhalation BID 11/07/23 10/04/24 Unknown History mcg/actuation HFA aerosol inhaler omeprazole 20 mg capsule,delayed 20 mg PO DAILY 11/07/23 10/04/24 Unknown History release empagliflozin 25 mg tablet 25 mg PO DAILY 10/04/24 10/04/24 09/26/24 History (Jardiance) resmetirom 80 mg tablet (Rezdiffra) 80 mg PO DAILY 10/04/24 10/04/24 Unknown History Exam Height,Weight and Vital Signs: Height 5 ft Weight 89.811 kg Pertinent Lab Results Pertinent Lab Results: Laboratory Tests 10/25/24 07:27 POC Glucose 250 H Airway Mallampati Class: III TM Dist: >3cm Neck ROM: Full Heart: RRR Lungs: CTA Assessment and Plan Assessment Anesthesia Assessment: Anesthesia Plan Discussed Final Anesthetic Review Family History of Problems with Anesthesia: No History of Problems with Anesthesia: No NPO: Yes ASA Class: II and III Final Preanesthetic Review: Meds/Allgs Chart Reviewed, Consent Obtained/Reviewed and Anes Risks/Benef Reviewed Patient Risk: Low Procedure Risk: Low Anesthetic Plan Anesthetic Plan: MAC: Disposition: Standard PACU
[2024-10-25] MEDS: Phenylephrine HCL 2.5% Oph SoL 2 ML BOTTLE 1 DROP EYE-LEFT ×3 (07:39→07:50)
[2024-10-25] MEDS: Ketorolac Tromethamine 0.5% Op 5 ML DROPS 1 DROP EYE-LEFT ×3 (07:39→07:49)
[2024-10-25] MEDS: Lactated Ringers 500 ML 50 ML IV (07:43)
--- NOTE | 2024-10-25 08:15 | MHC.SHP ---
Pre-Procedural Eval Section A - 24 Hr Update-Section A only Date of Service: 10/25/24 The patient is an INPATIENT: No Changes since office visit: No Cold of Flu in the past 2 weeks, No New Medical Problems, No Changes in Medication and No Patient answered all questions The patient has been examined within 24 hours of the surgical procedure. The History & Physical has been completed within 30 days and I have reviewed it.: Yes Section B - Complete if H&P > 30 days Chief Complaint: Age-related nuclear cataract, left eye Allergies: Allergies Allergy/AdvReac Type Severity Reaction Status Date / Time No Known Allergies Allergy Mild NKA Verified 10/11/24 07:32 Plan Diagnosis/Plan: Unchanged I have reviewed the history and physical and performed a pertinent physical examination on my patient. No changes have occurred unless specified. Time Spent With Patient Time: Total time managing care of this patient today ____ minutes.
--- NOTE | 2024-10-25 08:16 | HO.PNOPHT ---
Ophthalmology Procedure Procedure Date of Service: 10/25/24 Ophthalmology Viscoelastic: Healon Duet Dual Pack Pro Ophthalmology Lenses: IOL Acrysof MP - MA60AC (22) Procedure Notes: PREOPERATIVE DIAGNOSIS: Decreased visual acuity left eye secondary to cataract POSTOPERATIVE DIAGNOSIS: Same PROCEDURE: Left cataract extraction with intraocular lens insertion SURGEON: Rocky Singh M.D. ANESTHESIA: Topical/MAC ESTIMATED BLOOD LOSS: None COMPLICATIONS: None After obtaining informed consent, the patient was brought to the operation room suite and placed in the supine position. After adequate sedation per anesthesia, topical drops of Tetracaine were given to the left eye. The eye was then prepped and draped in the usual sterile fashion. The operating room microscope was then positioned over the operative eye and a lid speculum placed. A paracentesis was created. Viscoelastic was then instilled into the anterior chamber. A three plane incision was then created temporally, utilizing a 2.85 mm keratome. Capsulotomy forceps were then utilized to create a circular tear capsulotomy. Hydrodissection and hydrodelineation were carried out until adequate mobilization of the nucleus occurred. Phacoemulsification was then utilized to remove the dense central nucleus followed by removal of the cortical material utilizing the automated aspiration irrigation unit. Viscoat elastic was instilled into the posterior capsular bag followed by placement of a posterior chamber intraocular lens without difficulty. The residual Viscoat elastic was then removed utilizing the automated IA machine. The wound was check and found to be watertight. The patient tolerated the procedure well and the lid speculum was removed. Intracameral injection of Vigamox 0.1 mL followed by a subtenon injection of Kenalog-40 0.2 mL were administered. The patient will be seen in the a.m.
[2024-10-25 08:45] VITALS: BP 166/78; PULSE 55; RESP 12; TEMP 36.1; O2SAT 93
[2024-10-25 08:55] VITALS: BP 145/63; PULSE 59; RESP 14; TEMP 36.1; O2SAT 94
--- NOTE | 2024-10-25 14:37 | HO.POSTANES ---
Post Anesthesia Evaluation Post Anesthesia Evaluation Date of Service: 10/25/24 Vital Signs: Vital Signs Temp Pulse Resp BP Pulse Ox O2 Del Method 10/25/24 08:55 97 F 59 14 145/63 H 94 Room Air 10/25/24 08:45 97 F 55 12 166/78 H 93 Room Air Anesthesia: Monitored Mental Status: Awake Pain Control: Satisfactory Nausea/Vomiting: None Hydration: Adequate Anesthesia-Related Issues: No Anes. Related Issues
== END 2024-10-25 09:01 | disposition home or self-care (01) ==
PROVIDERS: PCP Internal Medicine; Visit Provider Ophthalmology
PROC: (CPT 66985; principal; 2024-10-25 08:30)
DX: H25.12 Age-related nuclear cataract, left eye (principal); H52.4 Presbyopia; Z83.511 Family history of glaucoma; H11.062 Recurrent pterygium of left eye; E11.9 Type 2 diabetes mellitus without complications; I10 Essential (primary) hypertension; E78.00 Pure hypercholesterolemia, unspecified; J45.909 Unspecified asthma, uncomplicated; G47.33 Obstructive sleep apnea (adult) (pediatric); Z79.82 Long term (current) use of aspirin; Z79.84 Long term (current) use of oral hypoglycemic drugs; Z79.85 Long-term (current) use of injectable non-insulin antidiabetic drugs; Z79.899 Other long term (current) drug therapy
CPT/HCPCS: 66984; 82947; J2250; J3301; V2630